=== PATIENT | female | born 1935 | race Caucasian/White ===

== ENCOUNTER → 2019-06-21 | Day surgery (SDC) | payer MEDICARE ==
[2019-06-20 10:30] VITALS: BMI 27.0
[~2019-06-21] MED LIST: BALANCED SALT IRRIG SOLN COMB2 15 ML IRRIG.SOLN IRRIGATION ONE; CHONDROITIN-SOD HYALURONATE 1 EACH SYRINGE (0.75 ML) INTRAOCULA ONE; EPINEPHrine (PF) 0.3 ML in BALANCED SALT IRRIG SOLN COMB2 500 ML IRRIGATION ONE; HYALURONATE SODIUM INTRAOCULAR 1 EACH SYRINGE (12MG/ML) INTRAOCULA ONE; LACTATED RINGERS 1,000 ML IV ONE; LACTATED RINGERS 1,000 ML IV SCH; LIDOCAINE 1% (10MG/ML) FOR IV START INTRADERMA PRN; LIDOCAINE 1% (PF) 10MG/ML VIAL MISCELLANE ONE; MOXIFLOXACIN HCL 0.5% DROPS 3 ML BTL OP ONE; TETRACAINE 0.5% OPHTH (PF) DROPS 4 ML BTL OP ONE; TIMOLOL 0.5% OPHTH DROPS 5 ML BTL OP ONE; TRYPAN BLUE 0.06% SYRINGE 0.5 ML SYRINGE MISCELLANE ONE
[2019-06-21] MEDS: PHENYLEPHRINE 2.5% OPHTH DRP 2ML OP NR ×3 (12:41→12:56)
[2019-06-21] MEDS: CYCLOPENTOLATE 1% OPHTH SOLN 2 ML BTL OP ONE ×3 (12:45→13:01)
[2019-06-21 12:50] VITALS: TEMP 97.4
[2019-06-21 12:55] LABS: Glucose,Whole Blood 103 mg/dL (75-99)
--- NOTE | 2019-06-21 14:38 | P.OP ---
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
[2019-06-21 15:06] VITALS: BP 184/91; PULSE 77; RESP 18
--- NOTE | 2019-06-22 07:25 | OP ---
OPERATIVE REPORT DATE OF SERVICE: 06/21/2019. PROCEDURE: Phacoemulsification of cataract and intraocular lens implant of the left eye. PREOPERATIVE DIAGNOSES: Nuclear sclerosis, cortical sclerosis and pseudoexfoliation. POSTOPERATIVE DIAGNOSES: Nuclear sclerosis, cortical sclerosis and pseudoexfoliation. SURGEON: Dr. Zafar Valentino. ANESTHESIA: Topical. ESTIMATED BLOOD LOSS: Approximately 2 mL. SPECIMEN TAKEN: None. NARRATIVE: After obtaining the appropriate consent, the patient was brought to the operating room, there she was placed on cardiac monitoring prepped and draped in the usual sterile manner. She was approached from her left temporal side and at the 5 o'clock position, an MVR blade was used to create a paracentesis port. Through this opening 1% Xylocaine MPF 50-50 mix with balanced salt solution was injected into the anterior chamber. This was followed by installation of tri garcia blue which was allowed to dwell in the eye for approximately 1 minute. This was irrigated away with balanced salt solution and the anterior chamber was then stabilized with Viscoat. At the 3 o'clock position, 2.5 mm keratome was used to create a self-sealing corneal flap incision. The planned goniotomy procedure was aborted due to the fact that the goniotomy prism was not considered to be adequately sterilized and would take at least one-half to have the device available for the procedure. Therefore, attention to the cataract was immediately addressed. A cystotome was introduced to begin a continuous tear capsulorrhexis which was completed using the Utrata forceps. Hydrodissection and hydrodelineation lens was accomplished with balanced salt solution. Phacoemulsification lens utilizing phaco chop was accomplished in 23.28 seconds at 16% power. Additional Xylocaine MPF was instilled into the anterior chamber. This was followed by removal of the remaining cortex under irrigation and aspiration along with careful polishing of the posterior capsule in the capsule vacuum mode. Additional Viscoat was then used to stabilize the capsular bag and a 13 mm capsular tension ring model 276 U.S. 1 G was inserted into the equator of the capsular bag without difficulty. This was followed by installation of an MX 60 E 22.0 diopter posterior chamber intraocular lens, also into the capsular bag without difficulty. The remaining viscoelastic was then removed with irrigation and aspiration in and around the intra- ocular lens as well as the anterior chamber. The eye was then brought to normal intraocular pressure through the paracentesis port and the incisions were confirmed watertight. She then received 2 drops of 0.5% timolol followed by moxifloxacin and was then lightly patched and shielded in the usual manner. There were no complications from the procedure. She tolerated the procedure well and was returned to outpatient recovery in good condition. YULIANA / LINETTE: [id number] /
== END | disposition home or self-care (01) ==
LOC: OR 12:10
PROVIDERS: ATTEND Ophthalmology
DX: H25.813 Combined forms of age-related cataract, bilateral (principal); H52.13 Myopia, bilateral; H52.4 Presbyopia; H40.1132 Primary open-angle glaucoma, bilateral, moderate stage; H40.1430 Capsular glaucoma with pseudoexfoliation of lens, bilateral, stage unspecified; H34.8310 Tributary (branch) retinal vein occlusion, right eye, with macular edema; M19.90 Unspecified osteoarthritis, unspecified site; J30.2 Other seasonal allergic rhinitis; Z88.0 Allergy status to penicillin; Z88.5 Allergy status to narcotic agent; Z87.891 Personal history of nicotine dependence; Z98.51 Tubal ligation status; Z98.890 Other specified postprocedural states; Z97.3 Presence of spectacles and contact lenses; Z82.3 Family history of stroke; Z83.518 Family history of other specified eye disorder
CPT/HCPCS: 66982; L8610; C1780; J0171; J2001

== ENCOUNTER → 2019-09-19 | Outpatient (CLI) | payer MEDICARE ==
[2019-09-19 15:01] LABS: Basophils % (A) 1 %; Eosinophils # (A) 0.2 k/uL (0-0.7); Eosinophils % (A) 3 %; HCT 35.3 % (34.0-46.0); HGB 11.7 gm/dL (11.4-16.0); Lymphocytes # (A) 1.3 k/uL (1.0-4.8); Lymphocytes % (A) 22 %; MCH 30.9 pg (25.0-35.0); MCHC 33.1 g/dL (31.0-37.0); MCV 93.3 fL (80.0-100.0); Mean Platelet Volume 9.1; Monocytes # (A) 0.3 k/uL (0-1.0); Monocytes % (A) 4 %; Neutrophils # (A) 4.1 k/uL (1.3-7.7); Neutrophils % (A) 68 %; Platelet Count 218 k/uL (150-450); RBC 3.78 m/uL (3.80-5.40); RDW 14.9 % (11.5-15.5)
--- NOTE | 2019-09-19 15:21 | XR ---
EXAMINATION TYPE: XR foot complete RT DATE OF EXAM: 09/19/2019 CLINICAL HISTORY: Nonhealing wound of the right foot TECHNIQUE: Frontal, lateral, and oblique images of the right foot are obtained. COMPARISON: None FINDINGS: Soft tissue ulceration is seen of the medial midfoot over the navicular. There is diffuse o sseous demineralization and very subtle early ulcer suspected of the navicular. Soft tissue swelling is seen superficial to this. Flexion deformities of the distal interphalangeal joints and proximal interphalangeal joints of the s econd through fifth digits limiting evaluation. Opposing surface sclerosis and joint space narrowing with bony proliferative change related to at least moderate arthropathy of the first tarsometatarsal joint joint. Findings are seen to a lesser degree of the first metatarsal phalangeal joint. Bony prol iferative change of the dorsal midfoot is also seen. No acute displaced right foot fracture noted. Sm all plantar enthesophyte/heel spur. IMPRESSION: Findings concerning for early osteomyelitis of the right navicular with overlying subcuta neous ulcer and soft tissue swelling. Correlation with three-phase bone scan recommended.
[2019-09-19 23:40] LABS: African American GFR (CKD) 68.5 (60.0-200.0); Albumin 3.8 g/dL (3.80-4.90); Albumin/Globulin Ratio 1.46 (1.60-3.17); Anion Gap 8.9 mmol/L (4.00-12.00); BUN/Creat Ratio 35.56 Ratio (12.00-20.00); Calcium 9.2 mg/dL (8.7-10.3); Carbon Dioxide 23.1 mmol/L (21.6-31.8); Globulin 2.6 g/dL (1.6-3.3); Non-African American GFR(CKD) 59.1 (60.0-200.0); Potassium 4.4 mmol/L (3.5-5.5); Total Bilirubin 0.2 mg/dL (0.3-1.2); Total Protein 6.4 g/dL (6.2-8.2)
== END | disposition home or self-care (01) ==
LOC: LABWHC1 14:08
PROVIDERS: ATTEND Podiatrist
DX: L97.512 Non-pressure chronic ulcer of other part of right foot with fat layer exposed (principal); M79.89 Other specified soft tissue disorders
CPT/HCPCS: 36415; 80053; 84134; 85025

== ENCOUNTER 2019-09-22 12:57 | Inpatient (IN) | payer MEDICARE ==
--- NOTE | 2019-09-22 13:49 | ED ---
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 She's had the area of erythema over the dorsal aspect of the lateral foot with increased pain especially on weightbearing. No fevers or chills she states she has some sweats but she attributes that to the recent hot weather. She does have an erythematous area which she states and gotten somewhat bigger. No n ausea no vomiting no other modifying factors at this time. MD Complaint: wound re-check - Related Data Home Medications Medication Instructions Recorded Confirmed Ibuprofen [Advil] 400 mg PO Q6HR PRN 06/20/19 09/22/19 Brimonidine Tartrate [Alphagan P 1 drops BOTH EYES TID 09/22/19 09/22/19 0.2% Ophth Soln] Allergies Allergy/AdvReac Type Severity Reaction Status Date / Time vitamin E (d-alpha Allergy Rash/Hives Verified 09/22/19 13:50 tocopherol) [vitamin E] Antihistamines - Alkylamine AdvReac Rapid Verified 09/22/19 13:50 Heart Rate morphine AdvReac Hallucinati Verified 09/22/19 13:50 ons antibiotics AdvReac Nausea & Uncoded 09/22/19 13:08 Vomiting Review of Systems ROS Statement: Those systems with pertinent positive or pertinent negative responses have been documented in the HPI. ROS Other: All systems not noted in ROS Statement are negative. Past Medical History Past Medical History: Eye Disorder, Musculoskeletal Disorder, Skin Disorder Additional Past Medical History / Comment(s): sciatica down right leg @times, sinus problems, wound on right foot arch History of Any Multi-Drug Resistant Organisms: None Reported Past Surgical History: Tubal Ligation Additional Past Surgical History / Comment(s): surg. for ectopic , left ear surg. x2 Past Anesthesia/Blood Transfusion Reactions: Postoperative Nausea & Vomiting (PONV) Additional Past Anesthesia/Blood Transfusion Reaction / Comment(s): very slow to wake from anesthesia Past Psychological History: No Psychological Hx Reported Smoking Status: Current every day smoker Past Alcohol Use History: None Reported Past Drug Use History: None Reported - Past Family History Mother Family Medical History: Cancer General Exam - General Exam Comments Initial Comments: This is a well-developed asthenic appearing female who is awake alert oriented 3 Limitations: no limitations General appearance: alert, in no apparent distress Head exam: Present: atraumatic, normocephalic, normal inspection Eye exam: Present: normal appearance, PERRL, EOMI. Absent: scleral icterus, conjunctival injection, periorbital swelling ENT exam: Present: normal exam, mucous membranes moist Neck exam: Present: normal inspection. Absent: tenderness, meningismus, lymphad enopathy Respiratory exam: Present: normal lung sounds bilaterally. Absent: respiratory distress, wheezes, rales, rhonchi, stridor Cardiovascular Exam: Present: regular rate, normal rhythm, normal heart sounds. Absent: systolic murmur, diastolic murmur, rubs, gallop, clicks GI/Abdominal exam: Present: soft, normal bowel sounds. Absent: distended, tenderness, guarding, rebound, rigid Extremities exam: Present: full ROM, tenderness, normal capillary refill, other (Chronic ulcer seen over the medial plantar aspect of the foot over the dorsal foot lateral aspect above the fourth and fifth metatarsals area of wound with surrounding erythema. Increased localized temperature. Some tenderness p alpation. Definite drainage seen. No lymphangitis. Proximally no tender lymphadenopathy to the anal area.). Absent: pedal edema, joint swelling, calf tenderness Back exam: Present: normal inspection Neurological exam: Present: alert, oriented X3, CN II-XII intact Psychiatric exam: Present: normal affect, normal mood Skin exam: Present: warm, dry, intact, normal color. Absent: rash Course Vital Signs 09/22/19 12:58 Temperature 97.8 F Pulse Rate 69 Respiratory 18 Rate Blood Pressure 194/77 O2 Sat by Pulse 98 Oximetry Medical Decision Making - Medical Decision Making I did discuss findings with patient family as well as with Dr. Ghotra. Patient be admitted with consultation by Dr. Reynaga - Lab Data Result diagrams: 09/22/19 14:09 09/22/19 14:09 Lab Results 09/22/19 09/22/19 Range/Units 14:09 14:09 WBC 7.9 (3.8-10.6) k/uL RBC 3.88 (3.80-5.40) m/uL Hgb 11.9 (11.4-16.0) gm/dL Hct 35.9 (34.0-46.0) % MCV 92.5 (80.0-100.0) fL MCH 30.6 (25.0-35.0) pg MCHC 33.1 (31.0-37.0) g/dL RDW 14.5 (11.5-15.5) % Plt Count 246 (150-450) k/uL Neutrophils % 62 % Lymphocytes % 28 % Monocytes % 4 % Eosinophils % 4 % Basophils % 1 % Neutrophils # 4.9 (1.3-7.7) k/uL Lymphocytes # 2.2 (1.0-4.8) k/uL Monocytes # 0.3 (0-1.0) k/uL Eosinophils # 0.3 (0-0.7) k/uL Basophils # 0.0 (0-0.2) k/uL Sodium 137 (137-145) mmol/L Potassium 4.5 (3.5-5.1) mmol/L Chloride 106 (98-107) mmol/L Carbon Dioxide 24 (22-30) mmol/L Anion Gap 7 mmol/L BUN 31 H (7-17) mg/dL Creatinine 0.72 (0.52-1.04) mg/dL Est GFR (CKD-EPI)AfAm >90 (>60 ml/min/1.73 sqM) Est GFR (CKD-EPI)NonAf 78 (>60 ml/min/1.73 sqM) Glucose 93 (74-99) mg/dL Calcium 9.1 (8.4-10.2) mg/dL Magnesium 2.0 (1.6-2.3) mg/dL Total Bilirubin 0.2 (0.2-1.3) mg/dL AST 45 H (14-36) U/L ALT 32 (4-34) U/L Alkaline Phosphatase 64 (38-126) U/L Creatine Kinase 450 H (30-135) U/L C-Reactive Protein 11.9 H (<10.0) mg/L Total Protein 6.9 (6.3-8.2) g/dL Albumin 3.7 (3.5-5.0) g/dL Disposition Clinical Impression: Osteomyelitis of foot, right, acute, Cellulitis of right foot, Dehydration Disposition: ADMITTED IP TO THIS HOSP Condition: Stable Referrals: None,Stated [Primary Care Provider] - 1-2 days
[2019-09-22] MEDS ORDERED: cefTRIAXone IN SWFI 1,000 MG/10 ML SYRINGE IVP STA (13:55)
[2019-09-22 14:20] LABS: Basophils % (A) 1 %; Eosinophils # (A) 0.3 k/uL (0-0.7); Eosinophils % (A) 4 %; HCT 35.9 % (34.0-46.0); HGB 11.9 gm/dL (11.4-16.0); Lymphocytes # (A) 2.2 k/uL (1.0-4.8); Lymphocytes % (A) 28 %; MCH 30.6 pg (25.0-35.0); MCHC 33.1 g/dL (31.0-37.0); MCV 92.5 fL (80.0-100.0); Mean Platelet Volume 8.6; Monocytes # (A) 0.3 k/uL (0-1.0); Monocytes % (A) 4 %; Neutrophils # (A) 4.9 k/uL (1.3-7.7); Neutrophils % (A) 62 %; Platelet Count 246 k/uL (150-450); RBC 3.88 m/uL (3.80-5.40); RDW 14.5 % (11.5-15.5); WBC 7.9 k/uL (3.8-10.6)
[2019-09-22 14:33] LABS: ALT 32 U/L (4-34); AST 45 U/L (14-36); African American GFR (CKD) >90 (>60 ml/min/1.73 sqM); Albumin 3.7 g/dL (3.5-5.0); Alkaline Phosphatase 64 U/L (38-126); Anion Gap 7 mmol/L; Blood Urea Nitrogen 31 mg/dL (7-17); C Reactive Protein 11.9 mg/L (<10.0); Calcium 9.1 mg/dL (8.4-10.2); Carbon Dioxide 24 mmol/L (22-30); Chloride 106 mmol/L (98-107); Creatine Kinase 450 U/L (30-135); Glucose 93 mg/dL (74-99); Non-African American GFR(CKD) 78 (>60 ml/min/1.73 sqM); Potassium 4.5 mmol/L (3.5-5.1); Sodium 137 mmol/L (137-145); Total Bilirubin 0.2 mg/dL (0.2-1.3); Total Protein 6.9 g/dL (6.3-8.2)
[2019-09-22] MEDS ORDERED: NALOXONE 0.4 MG/ML 1 ML VIAL IV PRN (15:23)
[2019-09-22] MEDS ORDERED: SODIUM CHLORIDE 0.9% 1,000 ML IV SCH (15:30)
[2019-09-22] MEDS ORDERED: hydrALAZINE HCL 20 MG/ML 1 ML VIAL IVP STA (16:30)
[2019-09-22] MEDS ORDERED: HYDROcodone/APAP 5-325MG 1 EACH TAB PO PRN (16:46)
--- NOTE | 2019-09-22 16:53 | P.HPIM ---
History of Present Illness H&P Date: 09/22/19 Chief Complaint: Right foot pain 83-year-old female with PMH of glaucoma presents to the ED after being sent in by her saw tailer. Patient reports chronic draining wound from the sole of her right foot that has been ongoing for the past 2 years after a callus broke open. She has been seeing a physician in [place] for treatment. She has never received long-term antibiotics. She underwent debridement last week with Dr. Reynaga and has noticed redness in her foot that has been progressively getting worse. She was able to follow with her saw tailer today who sent her in to be evaluated for chronic osteomyelitis. Foot x-ray shows findings concerning for early osteomyelitis. In the ED, her blood pressure was elevated to 194/77. CBC was unremarkable. CMP showed BUN of 31 and AST of 45. CPK was 450. CRP was elevated 11.9. Patient is admitted for right foot wound, probable osteomyelitis, podiatry and ID consultation. Review of Systems Pertinent positives and negatives as discussed in HPI, a complete review of syst ems was performed and all other systems are negative. Past Medical History Past Medical History: Eye Disorder, Musculoskeletal Disorder, Skin Disorder Additional Past Medical History / Comment(s): sciatica down right leg @times, sinus problems, wound on right foot arch History of Any Multi-Drug Resistant Organisms: None Reported Past Surgical History: Tubal Ligation Additional Past Surgical History / Comment(s): surg. for ectopic , left ear surg. x2 Past Anesthesia/Blood Transfusion Reactions: Postoperative Nausea & Vomiting (PONV) Additional Past Anesthesia/Blood Transfusion Reaction / Comment(s): very slow to wake from anesthesia Past Psychological History: No Psychological Hx Reported Smoking Status: Current every day smoker Past Alcohol Use History: None Reported Past Drug Use History: None Reported - Past Family History Mother Family Medical History: Cancer Medications and Allergies Home Medications Medication Instructions Recorded Confirmed Type Ibuprofen [Advil] 400 mg PO Q6HR PRN 06/20/19 09/22/19 History Brimonidine Tartrate [Alphagan P 1 drops BOTH EYES TID 09/22/19 09/22/19 History 0.2% Ophth Soln] Allergies Allergy/AdvReac Type Severity Reaction Status Date / Time vitamin E (d-alpha Allergy Rash/Hives Verified 09/22/19 13:50 tocopherol) [vitamin E] Antihistamines - Alkylamine AdvReac Rapid Verified 09/22/19 13:50 Heart Rate morphine AdvReac Hallucinati Verified 09/22/19 13:50 ons antibiotics AdvReac Nausea & Uncoded 09/22/19 13:08 Vomiting Physical Exam Vitals: Vital Signs Temp Pulse Resp BP Pulse Ox 09/22/19 16:21 98.4 F 74 16 197/100 97 09/22/19 12:58 97.8 F 69 18 194/77 98 Intake and Output 09/22/19 09/22/19 09/22/19 06:59 14:59 22:59 Other: Weight 60.781 kg General: [non toxic], [no distress], [appears at stated age] Derm: [warm], [dry] Head: [atraumatic], [normocephalic], [symmetric] Eyes: [EOMI], [no lid lag], [anicteric sclera] Mouth: [no lip lesion], [mucus membranes moist] Cardiovascular: [S1S2 reg], [no murmur], [positive DP pulse bilateral], Lungs: [CTA bilateral], [no rhonchi, no rales] , [no accessory muscle use] Abdominal: [soft], [ nontender to palpation], [no guarding], [no appreciable organomegaly] Ext: [no gross muscle atrophy], [no edema], [no contractures], [right foot 1" x 1" wound with serosanguineous drainage over the plantar surface with erythema extending to the dorsal aspect of her right foot] Neuro: [ CN II-XI grossly intact], [no focal neuro deficits] Psych: [Alert], [oriented], [appropriate affect] Results CBC & Chem 7: 09/22/19 14:09 09/22/19 14:09 Labs: Abnormal Lab Results - Last 24 Hours (Table) 09/22/19 Range/Units 14:09 BUN 31 H (7-17) mg/dL AST 45 H (14-36) U/L Creatine Kinase 450 H (30-135) U/L C-Reactive Protein 11.9 H (<10.0) mg/L Assessment and Plan Assessment: Hypertensive urgency Osteomyelitis of the right foot Prerenal azotemia with Elevated CPK Elevated AST Glaucoma Blood pressure 197/100. Patient is no history of hypertension. She complains of no pain. We will give her a 1 time dose of Hydralazine 10 mg IV. I will start her on Lisinopril and HCTZ. Telemetry monitoring will be ordered. Her vitals be monitored and medications adjusted if necessary. As seen on foot x-ray. CRP elevated. We'll consult podiatry for further recommendations. Will likely need a bone scan. Consult ID for further recommendations on antibiotics. Continue Rocephin in the meantime. Follow wound culture. Her BUN is 31. Along with her elevated CPK of 450. This is likely related to dehydration. She will be started on normal saline at 80 mL per hour. We will repeat CMP tomorrow morning. Patient has elevated AST of 45. This is of unknown significance. We will repeat CMP tomorrow morning. I will continue her home medication of brimonidine. DVT prophylaxis: [Heparin subcutaneous] Discussed with: [Patient and daughter] Anticipated discharge: [2-3 days] Anticipated discharge place: [Home] A total of [45] minutes was spent on the care of this complex patient more than 50% of the time was spent in counseling and care coordination. Patient names her daughter Daphne decision maker if she can't make decisions for herself. Patient would like to be no code but is open to intubation if necessary.
[2019-09-22] MEDS: LISINOPRIL-HCTZ 10-12.5 MG 1 EACH TAB PO SCH (17:10)
[2019-09-22] MEDS ORDERED: guaiFENesin 600 MG TABLET.ER PO PRN (18:09)
[2019-09-22] MEDS: HEPARIN SODIUM,PORCINE 5,000 UNIT/ML 1 ML VIAL SQ SCH (22:12)
[2019-09-22] MEDS: BRIMONIDINE TARTRATE 0.2% DROPS 5 ML BTL BOTH EYES SCH ×2 (22:12→22:16)
[2019-09-22] MEDS: IBUPROFEN 400 MG TAB PO PRN (22:13)
[2019-09-22] MEDS ORDERED: VANCOMYCIN IV PER PHARMACY 1 EACH MISC MISCELLANE PRN (22:44)
[2019-09-22] MEDS: VANCOMYCIN 1,250 MG in SODIUM CHLORIDE 0.9% 250 ML IVPB SCH (23:25)
--- NOTE | 2019-09-23 00:30 | P.CONS ---
History of Present Illness - Reason for Consult Consult date: 09/22/19 right foot osteomyelitis Requesting physician: Marine Ghotra - Chief Complaint right foot non healing wound and abnormal x ray - History of Present Illness Patient is 83-year-old female who apparently did have a chronic nonhealing wound to the plantar aspect of the right foot for more than a year now patient previously has been taking care off at the wound care center in [place] however recently the patient has been getting her treatment at the [facility] wound care center apparently the patient recently did have an x-ray of the right foot with concern for possible osteomyelitis she was seen in the wound care center today where she was noticed to have more swelling and redness on the dorsal aspect of the right foot with concern for cellulitis and osteomyelitis the patient has been referred to the ER for further management on arrival to the ER the patient has been afebrile patient did have a normal white count CRP was mildly low at 11.9 patient was started on Rocephin has been admitted to hospital infectious disease was consulted for further management of antibiotic therapy, the patient denies having any fever or any chills denies having any chest pain shortness of breath or cough no abdominal pain patient did have a swelling and redness on the dorsal aspect of the right foot has been going on for the last few days denies having history of any trauma mild dull aching pain to the right foot intensity about 3-4 out of 10 and no radiation and denies having significant purulent drainage from the right foot wound. Review of Systems Positive point has been mentioned in HPI rest of the systems are negative Past Medical History Past Medical History: Eye Disorder, Musculoskeletal Disorder, Skin Disorder Additional Past Medical History / Comment(s): sciatica down right leg @times, sinus problems, wound on right foot arch History of Any Multi-Drug Resistant Organisms: None Reported Past Surgical History: Tubal Ligation Additional Past Surgical History / Comment(s): surg. for ectopic , left ear surg. x2 Past Anesthesia/Blood Transfusion Reactions: Postoperative Nausea & Vomiting (PONV) Additional Past Anesthesia/Blood Transfusion Reaction / Comm: very slow to wake from anesthesia Past Psychological History: No Psychological Hx Reported Smoking Status: Current every day smoker Past Alcohol Use History: None Reported Past Drug Use History: None Reported - Past Family History Mother Family Medical History: Cancer Medications and Allergies Home Medications Medication Instructions Recorded Confirmed Type Ibuprofen [Advil] 400 mg PO Q6HR PRN 06/20/19 09/22/19 History Brimonidine Tartrate [Alphagan P 1 drops BOTH EYES TID 09/22/19 09/22/19 History 0.2% Ophth Soln] Allergies Allergy/AdvReac Type Severity Reaction Status Date / Time vitamin E (d-alpha Allergy Rash/Hives Verified 09/22/19 13:50 tocopherol) [vitamin E] Antihistamines - Alkylamine AdvReac Rapid Verified 09/22/19 13:50 Heart Rate morphine AdvReac Hallucinati Verified 09/22/19 13:50 ons antibiotics AdvReac Nausea & Uncoded 09/22/19 13:08 Vomiting Physical Exam Vitals: Vital Signs Temp Pulse Pulse Resp BP BP Pulse Ox 09/22/19 16:21 98.4 F 74 16 197/100 97 09/22/19 16:16 97.6 F 88 18 163/96 97 09/22/19 12:58 97.8 F 69 18 194/77 98 Intake and Output 09/22/19 09/22/19 09/22/19 06:59 14:59 22:59 Other: Weight 60.781 kg 60.781 kg GENERAL DESCRIPTION: Elderly female lying in bed, no distress. No tachypnea or accessory muscle of respiration use. HEENT: Shows Pallor , no scleral icterus. Oral mucous membrane is dry. NECK: Trachea central, no thyromegaly. LUNGS: Unlabored breathing. Clear to auscultation anteriorly. No wheeze or crackle. HEART: S1, S2, regular rate and rhythm. ABDOMEN: Soft, no tenderness , guarding or rigidity EXTREMITIES: Right foot plantar aspect did have wound which is not probing down to the bone patient did have a swelling and erythema on the dorsum aspect of the right foot and no purulent drainage. SKIN: No rash, no masses palpable. NEUROLOGICAL: The patient is awake, alert, oriented x3, mood and affect normal. Results CBC & Chem 7: 09/22/19 14:09 09/22/19 14:09 Labs: Abnormal Lab Results - Last 24 Hours (Table) 09/22/19 Range/Units 14:09 BUN 31 H (7-17) mg/dL AST 45 H (14-36) U/L Creatine Kinase 450 H (30-135) U/L C-Reactive Protein 11.9 H (<10.0) mg/L Assessment and Plan Assessment: -patient with right diabetic foot infection in this patient who did have a chronic nonhealing wound on the plantar aspect of the right foot now with evidence of secondary cellulitis on the dorsum of the right foot and abnormal x- ray suspicious for osteomyelitis we will need to cover for both gram-positive skin marcy as well as gram-negative pathogen with a likely source of the cellulitis and possible osteomyelitis (1) Cellulitis of right foot Current Visit: Yes Status: Acute Code(s): L03.115 - CELLULITIS OF RIGHT LOWER LIMB SNOMED Code(s): 333834242 (2) Osteomyelitis of foot, right, acute Current Visit: Yes Status: Acute Code(s): M86.171 - OTHER ACUTE OSTEOMYELITIS, RIGHT ANKLE AND FOOT SNOMED Code(s): 7258806513354012 Plan: 1-wound culture has been obtained from both aerobic and anaerobic to guide further antibiotic therapy 2-we will obtain a three-phase bone scan 3-vancomycin pharmacy to dose her with a target trough of 15 while watching her kidney function and Vanco trough closely. And Rocephin 2 g daily 4-local wound care with Aquacel packing of the wound We will follow on clinical condition and cultures to further adjust medication if needed Thank you for this consultation we will follow the patient along with you Time with Patient: Greater than 30
[2019-09-23 06:31] LABS: Basophils % (A) 1 %; Eosinophils # (A) 0.3 k/uL (0-0.7); Eosinophils % (A) 5 %; HCT 33.6 % (34.0-46.0); HGB 11.2 gm/dL (11.4-16.0); Lymphocytes # (A) 2.1 k/uL (1.0-4.8); Lymphocytes % (A) 35 %; MCH 30.8 pg (25.0-35.0); MCHC 33.2 g/dL (31.0-37.0); MCV 92.7 fL (80.0-100.0); Mean Platelet Volume 8.9; Monocytes # (A) 0.3 k/uL (0-1.0); Monocytes % (A) 4 %; Neutrophils # (A) 3.3 k/uL (1.3-7.7); Neutrophils % (A) 54 %; Platelet Count 239 k/uL (150-450); RBC 3.62 m/uL (3.80-5.40); RDW 14.4 % (11.5-15.5); WBC 6.1 k/uL (3.8-10.6)
[2019-09-23 06:51] LABS: Albumin 3.2 g/dL (3.5-5.0); C Reactive Protein 10.4 mg/L (<10.0); Calcium 8.7 mg/dL (8.4-10.2); Potassium 3.8 mmol/L (3.5-5.1); Total Bilirubin 0.2 mg/dL (0.2-1.3); Total Protein 6.4 g/dL (6.3-8.2)
[2019-09-23 08:45] LABS: Erythrocyte Sedimentation Rate 55 mm/hr (0-20)
[2019-09-23] MEDS: PANTOPRAZOLE 40 MG/10 ML VIAL IV SCH ×2 (09:04→09:07)
[2019-09-23] MEDS: HEPARIN SODIUM,PORCINE 5,000 UNIT/ML 1 ML VIAL SQ SCH ×2 (09:05→20:12)
[2019-09-23] MEDS: BRIMONIDINE TARTRATE 0.2% DROPS 5 ML BTL BOTH EYES SCH ×3 (09:06→20:12)
--- NOTE | 2019-09-23 12:13 | NM ---
EXAMINATION TYPE: NM bone 3 phase DATE OF EXAM: 09/23/2019 COMPARISON: NONE HISTORY: Plantar wound on the right foot Triple phase bone scintigraphy was performed following the injection of 23.9 mCi Tc 99m MDP. Immedia te images and 3 hours post injection images acquired. FINDINGS: Flow images show slight increased flow to the right foot. Pool images show forefoot activity in both feet, greater on the right than the left. Delayed static images show increased activity on the right at the tarsometatarsal junctions of the first through fourth metatarsals and also the tibiotalar join t on the right. IMPRESSION: FINDINGS MORE CONSISTENT WITH DEGENERATIVE CHANGES AND OSTEOMYELITIS.
--- NOTE | 2019-09-23 12:46 | PN ---
PROGRESS NOTE DATE OF SERVICE: 09/23/2019 REASON FOR FOLLOWUP: Right diabetic foot wound with secondary cellulitis and a question of osteomyelitis. INTERVAL HISTORY: The patient is currently afebrile. The patient is breathing comfortably. Denies any chest pain, cough. No nausea, vomiting, abdominal pain or discomfort. The right foot has improved. PHYSICAL EXAMINATION: Blood pressure 151/67, pulse of 71, temperature 97.4. She is 96% on room air. General description is an elderly female up in the chair in no distress. Respiratory system: Unlabored breathing. Clear to auscultation anteriorly. HEART S1, S2. Regular rate and rhythm. ABDOMEN: Soft, no tenderness. Right foot dorsum area did have a small blister with pustule. Redness slightly decreased. Minimal drainage on the plantar wound on the right foot. LABS: Hemoglobin 11.2, white count 6.1, BUN of 26, creatinine 0.74. DIAGNOSTIC IMPRESSION AND PLAN: Patient with right diabetic foot wound with underlying cellulitis. Waiting for the bone scan to be completed and culture to finalize. Keep the patient on current antibiotic form of Rocephin and vancomycin. RN has been advised if the pustule on the dorsum opens up take the culture and continue supportive care. MMODL / IJN: [id number] /
[2019-09-23] MEDS: VANCOMYCIN 1,250 MG in SODIUM CHLORIDE 0.9% 250 ML IVPB SCH (15:37)
--- NOTE | 2019-09-23 15:51 | P.PN ---
Subjective Progress Note Date: 09/23/19 Principal diagnosis: Right foot wound Patient was seen and examined. No acute events overnight. Patient reports continued drainage of her right foot ulcer. She reports improvement in the redness of her right foot. Pain is currently well under control. She denies any chest pain, shortness breath or palpitations. No nausea or vomiting. No fever or chills. Objective - Vital Signs Vital signs: Vital Signs Temp 97.5 F L 09/23/19 13:06 Pulse 74 09/23/19 15:44 Resp 16 09/23/19 13:06 BP 150/71 09/23/19 15:44 Pulse Ox 98 09/23/19 13:06 Intake & Output 09/22/19 09/23/19 09/23/19 18:59 06:59 18:59 Intake Total 480 750 Balance 480 750 Weight 60.781 kg Intake: Intake, IV Titration 480 Amount Sodium Chloride 0.9% 1, 480 000 ml @ 80 mls/hr IV . [id number] LUCIANA Rx#:[id number] Oral 750 Other: # Voids 1 2 - Exam General: [non toxic], [no distress], [appears at stated age] Derm: [warm], [dry] Head: [atraumatic], [normocephalic], [symmetric] Eyes: [EOMI], [no lid lag], [anicteric sclera] Mouth: [no lip lesion], [mucus membranes moist] Cardiovascular: [S1S2 reg], [no murmur], [positive DP pulse bilateral], Lungs: [CTA bilateral], [no rhonchi, no rales] , [no accessory muscle use] Abdominal: [soft], [ nontender to palpation], [no guarding], [no appreciable or ganomegaly] Ext: [no gross muscle atrophy], [no edema], [no contractures], [right foot 1" x 1" wound with serosanguineous drainage over the plantar surface with erythema extending to the dorsal aspect of her right foot, improved] Neuro: [no focal neuro deficits] Psych: [Alert], [oriented], [appropriate affect] - Labs CBC & Chem 7: 09/23/19 06:11 09/23/19 06:11 Labs: Abnormal Lab Results - Last 24 Hours (Table) 09/23/19 09/23/19 Range/Units 06:11 06:11 RBC 3.62 L (3.80-5.40) m/uL Hgb 11.2 L (11.4-16.0) gm/dL Hct 33.6 L (34.0-46.0) % ESR 55 H (0-20) mm/hr Sodium 134 L (137-145) mmol/L BUN 26 H (7-17) mg/dL AST 41 H (14-36) U/L C-Reactive Protein 10.4 H (<10.0) mg/L Albumin 3.2 L (3.5-5.0) g/dL Microbiology - Last 24 Hours (Table) 09/22/19 16:55 Gram Stain - Preliminary Foot - Right Wound Culture - Preliminary 09/22/19 16:55 Anaerobic Culture - Preliminary Foot - Right Assessment and Plan Assessment: Hypertensive urgency, now improved Osteomyelitis of the right foot Prerenal azotemia with Elevated CPK Elevated AST Glaucoma Blood pressure is currently 150/71. Patient is no history of hypertension. She complains of no pain. I will continue her on Lisinopril and HCTZ. We will increase dosing for tomorrow. Telemetry monitoring will be ordered. Her vitals be monitored and medications adjusted if necessary. As seen on foot x-ray. CRP elevated. We'll consult podiatry for further recommendations. Bone scan ordered. Consult ID for further recommendations on antibiotics. Continue Rocephin in the meantime. Vancomycin added by anxiety. Follow wound culture. Her BUN is 31-26. Along with her elevated CPK of 450. This is likely related to dehydration. She will be continued on normal saline at 80 mL per hour. We will repeat CMP tomorrow morning. Patient has elevated AST of 45-41. This is of unknown significance. We will repeat CMP tomorrow morning. I will continue her home medication of brimonidine. [Patient omitted for osteomyelitis of the right foot. On antibiotics. Cultures are pending. Bone scan pending. Podiatry consult pending. She is pending clinical improvement. Will likely need long-term IV antibiotics. Likely DC in 2-3 days.]
[2019-09-23] MEDS: IBUPROFEN 400 MG TAB PO PRN (20:43)
[2019-09-24] MEDS: HEPARIN SODIUM,PORCINE 5,000 UNIT/ML 1 ML VIAL SQ SCH ×2 (08:44→21:58)
[2019-09-24] MEDS: PANTOPRAZOLE 40 MG TABLET PO SCH (08:45)
[2019-09-24] MEDS: VANCOMYCIN 1,250 MG in SODIUM CHLORIDE 0.9% 250 ML IVPB SCH (08:46)
[2019-09-24] MEDS: BRIMONIDINE TARTRATE 0.2% DROPS 5 ML BTL BOTH EYES SCH ×3 (08:46→21:58)
[2019-09-24] MEDS: LISINOPRIL-HCTZ 10-12.5 MG 1 EACH TAB PO SCH (08:55)
[2019-09-24] MEDS: IBUPROFEN 400 MG TAB PO PRN ×2 (08:58→22:06)
--- NOTE | 2019-09-24 17:13 | P.PN ---
Subjective Progress Note Date: 09/24/19 Principal diagnosis: Right foot wound Patient was seen and examined. No acute events overnight. Patient reports continued drainage of her right foot ulcer. She reports improvement in the redness of her right foot. Pain is currently well under control. She denies any chest pain, shortness breath or palpitations. No nausea or vomiting. No fever or chills. Objective - Vital Signs Vital signs: Vital Signs Temp 97.9 F 09/24/19 11:31 Pulse 68 09/24/19 11:31 Resp 16 09/24/19 11:31 BP 168/75 09/24/19 11:31 Pulse Ox 98 09/24/19 11:31 Intake & Output 09/23/19 09/24/19 09/24/19 18:59 06:59 18:59 Intake Total 750 700 Balance 750 700 Intake: Oral 750 700 Other: Voiding Method Toilet Toilet # Voids 2 1 2 # Bowel Movements 1 - Exam General: [non toxic], [no distress], [appears at stated age] Derm: [warm], [dry] Head: [atraumatic], [normocephalic], [symmetric] Eyes: [EOMI], [no lid lag], [anicteric sclera] Mouth: [no lip lesion], [mucus membranes moist] Cardiovascular: [S1S2 reg], [no murmur], [positive DP pulse bilateral], Lungs: [CTA bilateral], [no rhonchi, no rales] , [no accessory muscle use] Abdominal: [soft], [ nontender to palpation], [no guarding], [no appreciable organomegaly] Ext: [no gross muscle atrophy], [no edema], [no contractures], [right foot 1" x 1" wound with serosanguineous drainage over the plantar surface with erythema extending to the dorsal aspect of her right foot, improved] Neuro: [no focal neuro deficits] Psych: [Alert], [oriented], [appropriate affect] - Labs CBC & Chem 7: 09/23/19 06:11 09/24/19 05:57 Labs: Microbiology - Last 24 Hours (Table) 09/22/19 14:09 Blood Culture - Preliminary Blood No Growth after 48 hours Assessment and Plan Assessment: Hypertensive urgency, now improved Osteomyelitis of the right foot Prerenal azotemia with Elevated CPK Elevated AST Glaucoma Blood pressure is currently 150/71. Patient is no history of hypertension. She complains of no pain. Patient refusing antihypertensive medication. Telemetry monitoring will be ordered. Her vitals be monitored and medications adjusted if necessary. As seen on foot x-ray. CRP elevated. We'll consult podiatry for further recommendations. Bone scan shows osteomyelitis. Consult ID for further recommendations on antibiotics. Continue Rocephin in the meantime. Vancomycin added by infectious disease. Follow wound culture. Her BUN is 31-26. Along with her elevated CPK of 450. This is likely related to dehydration. DC IVF and encourage hydration by mouth. Patient has elevated AST of 45-41. This is of unknown significance. We will repeat CMP tomorrow morning. I will continue her home medication of brimonidine. [Patient omitted for osteomyelitis of the right foot. On antibiotics. Cultures are pending. Podiatry consult pending. She is pending clinical improvement. Will likely need long-term IV antibiotics. Likely DC in 1-2 days.]
[2019-09-25] MEDS: VANCOMYCIN 1,250 MG in SODIUM CHLORIDE 0.9% 250 ML IVPB SCH (00:04)
--- NOTE | 2019-09-25 02:27 | PN ---
PROGRESS NOTE DATE OF SERVICE: 09/24/2019 REASON FOR FOLLOWUP: Right diabetic foot wound with question of osteomyelitis. INTERVAL HISTORY: The patient is currently afebrile. The patient is breathing comfortably. The patient has been feeling better. Overall pain and discomfort to the right foot has improved. No nausea, no vomiting. No abdominal pain. No diarrhea. He wants to go home. PHYSICAL EXAMINATION: Blood pressure 168/75 with the pulse of 68, temperature is 97.9. She is 98% on room air. General description is an elderly female lying in bed in no distress. RESPIRATORY SYSTEM: Unlabored breathing, clear to auscultation anteriorly. HEART: S1, S2. Regular rate and rhythm. ABDOMEN: Soft. No tenderness. Right foot dorsum area did have small wound with secondary cellulitis. Culture has been obtained. DIAGNOSTIC IMPRESSION AND PLAN: Patient with right diabetic foot wound with concern for underlying cellulitis with some cellulitis prominent on the dorsum of the right foot in this patient who did have a small area of pustule which has opened up. Culture has been obtained. We will keep the patient on vancomycin and Rocephin while waiting for the culture to finalize. The bone scan will be reviewed with radiologist to see any of the inflammation corresponds to the wound and if the patient has need for outpatient IV antibiotic therapy. MMODL / IJN: [id number] / RITO
[2019-09-25] MEDS: LISINOPRIL-HCTZ 10-12.5 MG 1 EACH TAB PO SCH (06:01)
[2019-09-25 06:28] VITALS: TEMP 97.8
--- NOTE | 2019-09-25 07:51 | P.GSHP ---
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 Wednesday there is cellulitis and edema of the right foot with positive radiographic findings of suspicious osteomyelitis of the right foot. Patient was sent to the emergency room for evaluation and admission for treatment of the cellulitis. Patient has been put on vancomycin and Rocephin and voices no complaints. The wound is being treated with Aquacel this time. Past Medical History Past Medical History: Eye Disorder, Musculoskeletal Disorder, Skin Disorder Additional Past Medical History / Comment(s): sciatica down right leg @times, sinus problems, wound on right foot arch History of Any Multi-Drug Resistant Organisms: None Reported Past Surgical History: Tubal Ligation Additional Past Surgical History / Comment(s): surg. for ectopic , left ear surg. x2 Past Anesthesia/Blood Transfusion Reactions: Postoperative Nausea & Vomiting (P ONV) Additional Past Anesthesia/Blood Transfusion Reaction / Comment(s): very slow to wake from anesthesia Past Psychological History: No Psychological Hx Reported Smoking Status: Current every day smoker Past Alcohol Use History: None Reported Past Drug Use History: None Reported - Past Family History Mother Family Medical History: Cancer Medications and Allergies Home Medications Medication Instructions Recorded Confirmed Type Ibuprofen [Advil] 400 mg PO Q6HR PRN 06/20/19 09/22/19 History Brimonidine Tartrate [Alphagan P 1 drops BOTH EYES TID 09/22/19 09/22/19 History 0.2% Ophth Soln] Allergies Allergy/AdvReac Type Severity Reaction Status Date / Time vitamin E (d-alpha Allergy Rash/Hives Verified 09/22/19 13:50 tocopherol) [vitamin E] Antihistamines - Alkylamine AdvReac Rapid Verified 09/22/19 13:50 Heart Rate morphine AdvReac Hallucinati Verified 09/22/19 13:50 ons antibiotics AdvReac Nausea & Uncoded 09/22/19 13:08 Vomiting Surgical - Exam Vital Signs Temp Pulse Resp BP Pulse Ox 97.8 F 69 18 194/77 98 09/22/19 12:58 06/12/20 12:58 09/22/19 12:58 09/22/19 12:58 09/22/19 12:58 - Cardiovascular Pedal pulses are diminished with no digital hair 10 bilateral - Integumentary Full-thickness ulceration on the plantar aspect of the right foot plantar to the first met cuneiform joint. Patient has minimal necrotic tissue there is erythema and resolving on the dorsum of the right foot in comparison to Fridays observation - Neurologic Patient has loss of epicritic and pallesthetic sensations to the right lower extremity. - Musculoskeletal Patient has a gastrocnemius equinus bilateral. Patient has a collapsed medial arch on the right foot secondary posterior tibial tendon dysfunction. Results - Labs 09/23/19 06:11 09/24/19 05:57 Microbiology - Last 24 Hours (Table) 09/24/19 15:00 Gram Stain - Preliminary Foot - Right Wound Culture - Preliminary 09/24/19 15:00 Anaerobic Culture - Preliminary Foot - Right 09/22/19 16:55 Gram Stain - Final Foot - Right Wound Culture - Preliminary 09/22/19 14:09 Blood Culture - Preliminary Blood No Growth after 48 hours Assessment and Plan Assessment: Cellulitis right foot with neuropathic ulcer Plan: Exam it appears the IV antibiotics are effective in reducing the clinical appearance of the infection of the right foot. We will let infectious disease determine appropriate follow-up for the infection and discharge. Upon discharge patient should follow up in the wound care center as scheduled. Thank you for this consult Time with Patient: Less than 30
[2019-09-25 08:14] LABS: African American GFR (CKD) >90 (>60 ml/min/1.73 sqM); Non-African American GFR(CKD) 79 (>60 ml/min/1.73 sqM)
[2019-09-25] MEDS: PANTOPRAZOLE 40 MG TABLET PO SCH (08:35)
[2019-09-25] MEDS: HEPARIN SODIUM,PORCINE 5,000 UNIT/ML 1 ML VIAL SQ SCH (08:35)
[2019-09-25] MEDS: BRIMONIDINE TARTRATE 0.2% DROPS 5 ML BTL BOTH EYES SCH (08:36)
--- NOTE | 2019-09-25 13:47 | P.DS ---
Providers Date of admission: 09/22/19 15:23 Expected date of discharge: 09/25/19 Attending physician: Marine Ghotra MD Consults: 09/22/19 15:25 Consult Physician Routine Consulting Provider: Topher Leslie Consult Reason/Comments: Right foot cellulitis and osteomyelitis Do you want consulting provider notified?: Yes 09/22/19 16:29 Consult Physician Routine Consulting Provider: Marisabel Garnett Consult Reason/Comments: chronic OM Do you want consulting provider notified?: Yes Primary care physician: Stated None Hospital Course: 83-year-old female with PMH of glaucoma presents to the ED after being sent in by her gang tailer. Patient reports chronic draining wound from the sole of her right foot that has been ongoing for the past 2 years after a callus broke open. She has been seeing a physician in [place] for treatment. She has never received long-term antibiotics. She underwent debridement last week with Dr. Leslie and has noticed redness in her foot that has been progressively getting worse. She was able to follow with her gang tailer today who sent her in to be evaluated for chronic osteomyelitis. Foot x-ray shows findings concerning for early osteomyelitis. In the ED, her blood pressure was elevated to 194/77. CBC was unremarkable. CMP showed BUN of 31 and AST of 45. CPK was 450. CRP was elevated 11.9. Patient is admitted for right foot wound, probable osteomyelitis, podiatry and ID consultation. Patient was noted to be in hypertensive urgency with a BP of 197/100. She was given a one-time dose of hydralazine IV and started on lisinopril and hydrochlorothiazide. Her CRP was elevated. Podiatry was consulted and followed the patient during her hospitalization. ID was consulted and recommended adding vancomycin to Rocephin. She underwent a bone scan that was not conclusive for osteomyelitis. Infectious disease cleared the patient for discharge on Keflex and doxycycline. She was noted to have a prerenal azotemia with a BUN of 31 which improved to 26 at the time of discharge with IV hydration. She did have an elevated AST of 45 that improved to 41 at the time of discharge. Patient consistently refused her antihypertensive medication during her hospitalization. Patient was seen and examined. No acute events overnight. Patient reports improvement in the redness of her foot. She denies any chest pain, shortness of breath or palpitations. No nausea or vomiting. No fever or chills. General: [non toxic], [no distress], [appears at stated age] Derm: [warm], [dry] Head: [atraumatic], [normocephalic], [symmetric] Eyes: [EOMI], [no lid lag], [anicteric sclera] Mouth: [no lip lesion], [mucus membranes moist] Cardiovascular: [S1S2 reg], [no murmur], [positive DP pulse bilateral], Lungs: [CTA bilateral], [no rhonchi, no rales] , [no accessory muscle use] Abdominal: [soft], [ nontender to palpation], [no guarding], [no appreciable organomegaly] Ext: [no gross muscle atrophy], [no edema], [no contractures], [right foot 1" x 1" wound with serosanguineous drainage over the plantar surface with erythema extending to the dorsal aspect of her right foot, improved] Neuro: [no focal neuro deficits] Psych: [Alert], [oriented], [appropriate affect] Hypertensive urgency, now improved Osteomyelitis of the right foot Prerenal azotemia with Elevated CPK Elevated AST Glaucoma Blood pressure is currently 196/86. Patient is no history of hypertension. She complains of no pain. Telemetry monitoring will be ordered. Her vitals be monitored and medications adjusted if necessary. I will send a prescription for lisinopril and hydrochlorothiazide. I advised of warning symptoms of when to come to the ED including intractable headache, dizziness, chest pain, shortness of breath or p alpitations. Patient is continuing to refuse antihypertensive medication at this time and would like to follow-up with her PCP for further direction and recommendations. As seen on foot x-ray. CRP elevated. We'll consult podiatry for further recommendations. Bone scan was reviewed by Dr. Garnett with no concerns of OM. Consult ID for further recommendations on antibiotics. Continue Keflex and doxycycline for a total of 10 days. Her BUN is 31-26. Along with her elevated CPK of 450. This is likely related to dehydration. DC IVF and encourage hydration by mouth. Patient has elevated AST of 45-41. This is of unknown significance. Follow up with PCP in the outpatient setting. I will continue her home medication of brimonidine. [Patient appears to have cellulitis rather than osteomyelitis. She has been cleared for discharge from ID perspective. Plans on DC home with 10 days of Keflex and doxycycline. This complex discharge took about 35 minutes to complete.] Pertinent Studies: bone scan Patient Condition at Discharge: Stable Plan - Discharge Summary Discharge Rx Participant: No New Discharge Prescriptions: New Cephalexin [Keflex] 500 mg PO Q8HR 10 Days #30 cap Doxycycline [Vibramycin] 100 mg PO BID 10 Days #20 capsule Lisinopril-Hctz 10-12.5 mg [Zestoretic 10-12.5] 1 each PO DAILY #30 tab Continue Brimonidine Tartrate [Alphagan P 0.2% Ophth Soln] 1 drops BOTH EYES TID Discontinued Ibuprofen [Advil] 400 mg PO Q6HR PRN PRN Reason: Pain Discharge Medication List Brimonidine Tartrate [Alphagan P 0.2% Ophth Soln] 1 drops BOTH EYES TID 09/22/19 [History] Cephalexin [Keflex] 500 mg PO Q8HR 10 Days #30 cap 09/25/19 [Rx] Doxycycline [Vibramycin] 100 mg PO BID 10 Days #20 capsule 09/25/19 [Rx] Lisinopril-Hctz 10-12.5 mg [Zestoretic 10-12.5] 1 each PO DAILY #30 tab 09/25/19 [Rx] Follow up Appointment(s)/Referral(s): [facility], [NON-STAFF] - 1 Week None,Stated [Primary Care Provider] - 1-2 days [facility], [REFERRING] - 1 Week W[facility]aling[facility]Center [NON-STAFF] - 1 Week (with dr leslie on Wednesday, please call to make appointment ) Topher Leslie DPM [STAFF PHYSICIAN] - 1 Week Patient Instructions/Handouts: Osteomyelitis (DC) Activity/Diet/Wound Care/Special Instructions: activity as tolerated heart healthy diet as tolerated diet: Low-salt Follow-up with PCP within 2 days of discharge. Follow-up with podiatry within 1 week of discharge. Take all medications as advised. Discharge Disposition: HOME SELF-CARE
[2019-09-25] MEDS ORDERED: VANCOMYCIN TROUGH DUE 1 EACH MISC MISCELLANE ONE (14:00)
[2019-09-25 14:48] VITALS: BP 166/81; PULSE 65; RESP 16
--- NOTE | 2019-09-25 17:33 | PN ---
PROGRESS NOTE DATE OF SERVICE: 09/25/2019 REASON FOR FOLLOWUP: Right diabetic foot wound and cellulitis. INTERVAL HISTORY: The patient is currently afebrile. The patient is breathing comfortably. The patient denies having any chest pain. No shortness of breath. No nausea. No pain and right foot swelling has improved. PHYSICAL EXAMINATION: Blood pressure 100/66 pulse of 70, temperature 97.8, she is 98% on room air. General description is an elderly female, lying in bed in no distress. RESPIRATORY SYSTEM: Unlabored breathing, clear to auscultation anteriorly. HEART: S1, S2. Regular rate and rhythm. ABDOMEN: Soft, no tenderness. Right foot dorsum redness has improved. No purulent drainage. Right foot wound on the plantar aspect with no drainage. LABS: Wound culture has been negative. The bone scan was reviewed with radiologist. The patient did not have any uptake on the plantar aspect of the right foot for which patient did have chronic concern. There is some uptake on the dorsum. The patient has cellulitis and she did have significant arthritis. DIAGNOSTIC IMPRESSION AND PLAN: Patient admitted to the hospital with right foot dorsum cellulitis, possibly from gram- positive skin marcy. The patient overall clinical improvement on the vancomycin and Rocephin. Clinical suspicion of underlying osteomyelitis. Will plan on finish therapy with oral Keflex and doxycycline and close outpatient followup. This plan has been discussed in detail with the patient and advised to follow up in the office in about a week. Continue supportive care. MMODL / IJN: [id number] /
--- NOTE | 2019-09-27 08:57 | CDI ---
Documentation Clarification Form Date: 09/27/19 From: Halima Larios Phone: If you have a question about this query, please contact Ernestine Melissa Reports Analysis Manager at [phone] between 8am and 5pm. Admit Date: 09/22/19 Discharge Date:09/25/19 Patient Name: Juana Pop Visit Number: [id number] ATTENTION: The Clinical Documentation Specialists (CDI) and [facility] Coding Staff appreciate your assistance in clarifying documentation. Please respond to the clarification below the line at the bottom and electronically sign. The CDI & [facility] Coding staff will review the response and follow-up if needed. Please note: Queries are made part of the Legal Health Record. If you have any questions, please contact the author of this message via ITS. Dear Dr. Ghotra Conflicting documentation has been found in the medical record: Dr. Garnett documented that the patient's foot ulcer is a diabetic foot wound in his consult note and progress notes. Dr. Reynaga documented that the patient's foot ulcer is a neuropathic ulcer in his consult note. History/Risk Factors: Chronic nonhealing wound of right foot, cellulitis, hypertensive urgency, no history of diabetes documented Clinical Indicators: Wound with erythema, serosanguineous drainage, glucose 93 on 09/21 and 99 on 09/22 Treatment: IV Rocephin, IV Vancomycin, no meds for diabetes, no meds for neuropathy In your opinion, what is the most clinically appropriate diagnosis for this patient? 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
--- NOTE | 2019-09-29 11:26 | CDI ---
Documentation Clarification Form Date: 09/29/19 From: Halima Larios Phone: If you have a question about this query, please contact Ernestine Melsisa, [employer] at [phone] between 8am and 5pm. Admit Date: Discharge Date: Patient Name: Visit Number: ATTENTION: The Clinical Documentation Specialists (CDI) and [facility] Coding Staff appreciate your assistance in clarifying documentation. Please respond to the clarification below the line at the bottom and electronically sign. The CDI & [facility] Coding staff will review the response and follow-up if needed. Please note: Queries are made part of the Legal Health Record. If you have any questions, please contact the author of this message via ITS. Dear Dr. Ghotra A pressure ulcer was documented in your answer to your previous query. History/Risk Factors: Chronic nonhealing wound of the right foot, cellulitis Clinical Indicators: erythema, serosanguineous drainage Location: Sole of the right foot Wound description: erythema, serosanguineous drainage, minimal necrotic tissue Treatment: Aquacel packing In your professional opinion, can you please clarify the diagnosis: Stage 1 Pressure/Decubitus Ulcer (intact skin, non-blanching redness of local area) Stage 2 Pressure/Decubitus Ulcer (Partial thickness, loss of dermis, pink wound bed) Stage 3 Pressure/Decubitus Ulcer (Full thickness tissue loss) Stage 4 Pressure/Decubitus Ulcer (Full thickness tissue loss with exposed bone, tendon, or muscle. May have slough or eschar present) Unstageable Other condition, please specify Unable to determine Please indicate etiology of pressure ulcer (if known). stage 3 MTDD
== END 2019-09-25 15:19 | disposition home health service (06) | DRG 539 ==
LOC: EC 12:57 → 5NMEDONC 15:23
PROVIDERS: ADMIT Family Medicine; ATTEND Family Medicine
DX: M86.171 Other acute osteomyelitis, right ankle and foot (principal); L89.613 Pressure ulcer of right heel, stage 3; L03.115 Cellulitis of right lower limb; G62.9 Polyneuropathy, unspecified; E86.0 Dehydration; F17.200 Nicotine dependence, unspecified, uncomplicated; F41.9 Anxiety disorder, unspecified; H40.9 Unspecified glaucoma; I16.0 Hypertensive urgency; I10 Essential (primary) hypertension; R79.82 Elevated C-reactive protein (CRP); R74.8 Abnormal levels of other serum enzymes; R74.0 Nonspecific elevation of levels of transaminase and lactic acid dehydrogenase [LDH]; M54.31 Sciatica, right side; Z11.59 Encounter for screening for other viral diseases; R79.89 Other specified abnormal findings of blood chemistry; Z88.1 Allergy status to other antibiotic agents; Z88.5 Allergy status to narcotic agent; Z88.8 Allergy status to other drugs, medicaments and biological substances; Z98.51 Tubal ligation status; Z80.9 Family history of malignant neoplasm, unspecified
CPT/HCPCS: 36415; 78315; 80053; 80202; 82550; 82565; 83735; 84134; 85025; 85652; 86140; 87040; 87070; 87075; 87205; 96361; 96374; 96375; 99284

== ENCOUNTER → 2019-10-10 | Outpatient (CLI) | payer MEDICARE ==
--- NOTE | 2019-10-11 12:25 | P.ARTDOP ---
Arterial Doppler LOWER EXTREMITY ARTERIAL DOPPLER: DATE OF SERVICE: 10/10/2019 Reason for study: Ulcer right foot. Doppler waveforms: Multiphasic bilaterally throughout. Pulse volume recording: []. Pressure gradients: None. Ankle-brachial indices: 0.96 on the right and greater than 1 on the left. Toe brachial indices: 0.69 on the right, 0.66 on the left Impression: Normal study.
== END | disposition home or self-care (01) ==
LOC: RADUSWWP 08:40
PROVIDERS: ATTEND Podiatrist
DX: I73.9 Peripheral vascular disease, unspecified (principal)
CPT/HCPCS: 93923

== ENCOUNTER 2020-08-16 08:59 | Day surgery (SDC) | payer MEDICARE ==
[2020-08-15 12:53] VITALS: BMI 27.0
--- NOTE | 2020-08-15 19:40 | HP ---
HISTORY AND PHYSICAL CHIEF COMPLAINT: Perforation of the left tympanic membrane. HISTORY OF PRESENT ILLNESS: This patient is a pleasant 84-year-old female who was recently seen in my office for evaluation of a perforation of left tympanic membrane. In 2016, the patient underwent insertion of a Kartush patch into a perforation of the left tympanic membrane. However, recently the patch apparently came out and the patient noticed that she was once again having difficulty with hearing as well as having some dizziness. At the time that she was seen in the office, clinical examination revealed that the patch had become dislodged and was sitting in the left external auditory canal. It was recommended that the patient undergo reinsertion of a Kartush patch to the left perforated tympanic membrane under IV sedation. PAST MEDICAL HISTORY: Past medical history reveals patient has ALLERGIES TO SULFA MEDICATIONS, VITAMIN E AND SEPTRA. Her current medication is losartan. Her previous surgeries include D and C, insertion of a Kartush patch to a left tympanic membrane perforation, appendectomy. She is 1 6 para 5 miscarriages, including a tubal . REVIEW OF SYSTEMS: Positive with respect to the cardiovascular system, as the patient is known to have hypertension. The remainder of the review of systems is unremarkable. PHYSICAL EXAMINATION: This patient is a very pleasant 84-year-old female who is alert and cooperative. HEENT examination reveals that the right tympanic membrane is normal. Middle ear space is free of any fluid or infection. Examination of the left ear reveals the patient has approximately 10% to 15% central perforation of the left tympanic membrane. The middle ear space is free of any fluid, cholesteatoma or infection. Pupils are equal, round, reactive to light and accommodation. Extraocular movements within normal limits. Intranasal examination reveals moderate to severe septal deviation with compensatory hypertrophy of the inferior turbinates and a moderate amount of mucus on the mucous membranes and draining down the posterior pharynx. Cranial nerves 2 through 12 and remainder of the head and neck exam are within normal limits. CHEST/CARDIOVASCULAR: Both lung garcia are clear to percussion and auscultation. Patient is in regular sinus rhythm. S1, S2 are present without any murmurs, S3s or S4s. Peripheral pulses are bilaterally symmetrical. ABDOMEN: There is no evidence of any masses, megaly or tenderness. The abdomen is soft. Skin is unremarkable. MUSCULOSKELETAL/NEUROLOGICAL: Within normal limits. Pelvic/rectal exam is deferred at this time because the patient has this done on a regular basis at her family physician's office. The remainder of physical exam is unremarkable. IMPRESSION: Perforation of the left tympanic membrane. PLAN: The patient is scheduled undergo insertion of a Kartush patch into a perforation of the left tympanic membrane under IV sedation with MAC or possibly using LMA, depending upon the anesthesia department's preference. ATTENTION RNS IN THE PRE-SURGICAL AREA: I have not ordered any pre-surgical prophylactic antibiotics for this patient. If the pharmacy department sends any pre- surgical prophylactic antibiotics to the pre-surgical area for this patient, that order should be cancelled and the medication should be returned to the pharmacy department. Please make sure that the patient's account is credited appropriately. I have discussed the risks, benefits and alternative therapies for the above-mentioned procedure and for both sedation/analgesia as well as necessary blood product administration, if indicated, as they pertain to this patient. The patient has indicated his or her understanding and acceptance of the risks and procedures discussed. MMTAYLORL / IJN: [id number] /
[~2020-08-16 08:59] MED LIST changes: -BALANCED SALT IRRIG SOLN COMB2 15 ML IRRIG.SOLN IRRIGATION ONE; -CHONDROITIN-SOD HYALURONATE 1 EACH SYRINGE (0.75 ML) INTRAOCULA ONE; -EPINEPHrine (PF) 0.3 ML in BALANCED SALT IRRIG SOLN COMB2 500 ML IRRIGATION ONE; -HYALURONATE SODIUM INTRAOCULAR 1 EACH SYRINGE (12MG/ML) INTRAOCULA ONE; -LACTATED RINGERS 1,000 ML IV ONE; -LIDOCAINE 1% (10MG/ML) FOR IV START INTRADERMA PRN; -LIDOCAINE 1% (PF) 10MG/ML VIAL MISCELLANE ONE; -MOXIFLOXACIN HCL 0.5% DROPS 3 ML BTL OP ONE; +Pre Op ABX Message 1 EACH MISC MISCELLANE ONE; -TETRACAINE 0.5% OPHTH (PF) DROPS 4 ML BTL OP ONE; -TIMOLOL 0.5% OPHTH DROPS 5 ML BTL OP ONE; -TRYPAN BLUE 0.06% SYRINGE 0.5 ML SYRINGE MISCELLANE ONE
[2020-08-16] MEDS ORDERED: ONDANSETRON 4 MG/2 ML VIAL ONE (10:33)
[2020-08-16 10:52] VITALS: TEMP 98.3
[2020-08-16] MEDS ORDERED: fentaNYL (PF) 50 MCG/ML 2 ML AMP ONE (11:02)
[2020-08-16] MEDS ORDERED: PROPOFOL 10 MG/ML 20 ML VIAL IV ONE (11:02)
[2020-08-16 12:51] VITALS: BP 187/93; PULSE 71; RESP 16
--- NOTE | 2020-08-17 17:12 | OP ---
OPERATIVE REPORT DATE OF SURGERY: 08/16/2020. PREOP DIAGNOSIS: Perforation of the left tympanic membrane. POSTOPERATIVE DIAGNOSIS: Perforation of the left tympanic membrane. ANESTHESIA: IV sedation with MAC. OPERATIVE PROCEDURE: Insertion of a 7 mm Kartush patch to a perforation of the left tympanic membrane. OPERATING SURGEON: Dr. Briones. COMPLICATIONS: None. ESTIMATED BLOOD LOSS: Zero. OPERATIVE PROCEDURE: The patient is placed on the operating table in supine position. After uneventful IV sedation, satisfactory sedation was obtained. Next, the patient's left ear was draped in the usual and customary fashion. Following this, using the Zeiss operating microscope and a #3 aural speculum, the left external auditory canal was cleansed of all wax debris and a previously extruded Kartush patch was discarded. Next, inspection of the perforation revealed it to be dry and middle ear space to be dry and free of any fluid, infection or cholesteatoma. Following this, a 7 mm Kartush patch was chosen and was inserted in the usual and customary fashion using a pair of alligator forceps. Next, using a Parson needle, care was taken to make sure that the patch was well seated and all edges were checked. At this point, the procedure was terminated. There were no intraoperative complications. The patient tolerated the procedure well and was returned to the recovery room in satisfactory condition. MMODL / IJN: [id number] /
== END 2020-08-16 12:53 | disposition home or self-care (01) ==
LOC: OR 08:59
PROVIDERS: ATTEND Otolaryngology
DX: H72.92 Unspecified perforation of tympanic membrane, left ear (principal); Z90.89 Acquired absence of other organs; I10 Essential (primary) hypertension; Z79.899 Other long term (current) drug therapy; Z98.890 Other specified postprocedural states; Z87.891 Personal history of nicotine dependence; Z88.8 Allergy status to other drugs, medicaments and biological substances; Z88.1 Allergy status to other antibiotic agents; Z88.2 Allergy status to sulfonamides; Z88.5 Allergy status to narcotic agent
CPT/HCPCS: 69610; J2405; J3010; J2704

== ENCOUNTER 2022-01-21 07:17 | Day surgery (SDC) | payer MEDICARE ==
[2022-01-19 15:47] VITALS: BMI 26.2
[2022-01-21] MEDS: CYCLOPENTOLATE 1% OPHTH SOLN 2 ML BTL OP PRN ×4 (05:24→08:24)
[~2022-01-21 07:17] MED LIST changes: +LIDOCAINE 1% (10MG/ML) FOR IV START INTRADERMA PRN; -Pre Op ABX Message 1 EACH MISC MISCELLANE ONE; +TETRACAINE 0.5% OPHTH (PF) DROPS 4 ML BTL OP PRN
[2022-01-21 08:08] VITALS: TEMP 97.8
[2022-01-21] MEDS: PHENYLEPHRINE 2.5% OPHTH DRP 2ML OP PRN ×3 (08:08→08:27)
[2022-01-21] MEDS ORDERED: LACTATED RINGERS 1,000 ML IV ONE (08:28)
[2022-01-21] MEDS ORDERED: hydrALAZINE HCL 20 MG/ML 1 ML VIAL ONE (09:01)
[2022-01-21] MEDS ORDERED: fentaNYL (PF) 50 MCG/ML 2 ML AMP ONE (09:01)
[2022-01-21] MEDS ORDERED: MIDAZOLAM 2 MG/2 ML VIAL ONE (09:01)
[2022-01-21] MEDS ORDERED: METOPROLOL TARTRATE 5 MG/5 ML VIAL IVP ONE (09:01)
[2022-01-21] MEDS ORDERED: EPINEPHrine (PF) 0.3 ML in BALANCED SALT IRRIG SOLN COMB2 500 ML IRRIGATION ONE (09:05)
[2022-01-21] MEDS ORDERED: BALANCED SALT IRRIG SOLN COMB2 15 ML IRRIG.SOLN IRRIGATION ONE (09:26)
[2022-01-21] MEDS ORDERED: LIDOCAINE 1% (PF) 10MG/ML VIAL MISCELLANE ONE (09:27)
[2022-01-21] MEDS ORDERED: DUOVISC KIT (GREEN BOX) INTRAOCULA ONE (09:27)
[2022-01-21] MEDS ORDERED: TRYPAN BLUE 0.06% SYRINGE 0.5 ML SYRINGE INTRAOCULA ONE (09:28)
[2022-01-21] MEDS: MOXIFLOXACIN HCL 0.5% DROPS 3 ML BTL OP PRN ×2 (09:29→09:53)
[2022-01-21] MEDS: TIMOLOL 0.5% OPHTH DROPS 5 ML BTL OP PRN ×2 (09:29→09:53)
--- NOTE | 2022-01-21 09:54 | P.OP ---
Date of Procedure: 01/21/22 Preoperative Diagnosis: NS & CS & PSC Postoperative Diagnosis: same Procedure(s) Performed: PIOL< OD Implants: [id number] 500 20.50 Anesthesia: MAC Theatre Program Director #1: Zafar Valentino Pathology: none sent Condition: stable Disposition: same day Indications for Procedure: blurry vision Operative Findings: no complications
[2022-01-21 10:27] VITALS: BP 132/62; PULSE 63; RESP 18
--- NOTE | 2022-01-21 12:16 | OP ---
OPERATIVE REPORT PROCEDURES PERFORMED: Phacoemulsification of cataract and intraocular lens implant of the right eye with goniotomy of the right eye. PREOPERATIVE DIAGNOSES: Nuclear sclerosis, cortical sclerosis, posterior subcapsular cataract, pseudoexfoliation, and regular astigmatism. POSTOPERATIVE DIAGNOSES: Nuclear sclerosis, cortical sclerosis, posterior subcapsular cataract, pseudoexfoliation, and regular astigmatism. ANESTHESIA: Topical. ESTIMATED BLOOD LOSS: Less than 5 mL. SPECIMEN TAKEN: None. NARRATIVE: After obtaining the appropriate consent, the patient was brought to the operating room. There, she was asked to sit upright and the axes of 0 and 180 degrees were identified and marked with a gentian abdias marker. She was then placed in the proper supine position under cardiac monitoring and prepped and draped in the usual sterile manner. She was approached from her right temporal side. Using previously-acquired corneal topography information, the axis of 12 degrees was identified and marked with a [employer] axis marker. At the 11 o'clock position, an MVR blade was used to create a paracentesis port. Through this opening, 1% Xylocaine MPF 50:50 mix with balanced salt solution was injected into the anterior chamber. This was followed by Trypan blue, which was left to dwell in the eye for approximately 1 minute. At the end of that time, the Trypan blue was irrigated away from the eye, and the anterior chamber was then stabilized with Viscoat. At the 9 o'clock position, a 2.5 mm keratome was used to create a self-sealing corneal flap incision. The patient was then asked to rotate her head approximately 45 degrees to her left and maintain a gaze in that general direction. A gonioprism was placed on the patient's eye, and a [employer] dual blade goniotomy knife was passed across the anterior chamber to perform an inside-out technique. Approximately, 4-clock hours of trabecular meshwork was removed. Minimal bleeding was encountered during the procedure. She was then rotated back to normal supine position, and a cystotome was introduced to begin a continuous tear capsulorrhexis, which was then completed using the Utrata forceps. Hydrodissection and hydrodelineation of the lens were accomplished in 26.7 seconds at 18% power. Additional Xylocaine MPF was instilled into the anterior chamber. This was followed by placement of capsular tension ring of 13 mm into the capsular bag without difficulty. It was appreciated while inserting the ring that there was some moderate laxity appreciated in the zonules holding the capsular bag, though there were no areas of specific zonular loss. This was followed by removal of the remaining cortex under irrigation and aspiration as well as very careful polishing of the posterior capsule in the capsule vacuum mode. Provisc was then used to stabilize the capsular bag, and a Bausch [employer] Lomb MX60ET 20.5-diopter x 5-diopter astigmatic lens was inserted into the capsular bag without difficulty. The lens was rotated approximately 180 degrees to help remove some remaining cortex under the incision. Once this was accomplished, then the lens was rotated finely to be oriented with the 12-degree axis marked on the patient's cornea. The lens was tamponaded with the tip of the irrigation and aspiration unit and then was gently removed from the anterior chamber of the eye. The temporal wound was hydrated with balanced salt solution, as was the paracentesis port, and the eye was brought to the slightly above normal intraocular pressure at the end of the case. Both incisions were confirmed to be watertight. She then received 2 drops of 0.5% timolol followed by 2 drops of moxifloxacin. She was then lightly patched and shielded in the usual manner. There were no complications from the procedure. She tolerated the procedure well and was returned to outpatient recovery in good condition. YULIANA / LINETTE: [id number] /
== END 2022-01-21 11:23 | disposition home or self-care (01) ==
LOC: OR 07:17
PROVIDERS: ATTEND Ophthalmology
DX: H40.1332 Pigmentary glaucoma, bilateral, moderate stage (principal); H25.11 Age-related nuclear cataract, right eye; I10 Essential (primary) hypertension; F17.210 Nicotine dependence, cigarettes, uncomplicated
CPT/HCPCS: 66984; V2632; J2250; J0360; J0171; J3010; J2001

== ENCOUNTER 2022-05-15 07:02 | Day surgery (SDC) | payer MEDICARE ==
[2022-05-13 09:01] VITALS: BMI 24.2
[~2022-05-15 07:02] MED LIST changes: +ATROPINE OPHTH SOLN 1% 5ML BTL OPHTHALMIC PRN; -LACTATED RINGERS 1,000 ML IV SCH; -LIDOCAINE 1% (10MG/ML) FOR IV START INTRADERMA PRN; +MOXIFLOXACIN HCL 0.5% DROPS 3 ML BTL OP PRN; +TIMOLOL 0.5% OPHTH DROPS 5 ML BTL OP PRN
[2022-05-15] MEDS ORDERED: LACTATED RINGERS 1,000 ML IV SCH (07:18)
[2022-05-15 07:42] VITALS: TEMP 98
[2022-05-15] MEDS ORDERED: fentaNYL (PF) 50 MCG/ML 2 ML AMP ONE (08:30)
[2022-05-15] MEDS ORDERED: MIDAZOLAM 2 MG/2 ML VIAL ONE (08:30)
--- NOTE | 2022-05-15 09:00 | P.OP ---
Date of Procedure: 05/15/22 Preoperative Diagnosis: clotted hyphema right eye Postoperative Diagnosis: same Procedure(s) Performed: anterior chamber washout Implants: none Anesthesia: MAC Surgeon: Zafar Valentino Pathology: none sent Condition: stable Disposition: same day Indications for Procedure: stationary clot filling anterior segment of eye Operative Findings: no complications
[2022-05-15] MEDS ORDERED: BALANCED SALT IRRIG SOLN COMB2 15 ML IRRIG.SOLN INTRAOCULA ONE (09:04)
[2022-05-15 09:36] VITALS: BP 156/73; PULSE 64; RESP 15
--- NOTE | 2022-05-15 11:36 | OP ---
OPERATIVE REPORT DATE OF SERVICE : 05/15/2022 PROCEDURE PERFORMED: Anterior chamber washout of the right eye. PREOPERATIVE DIAGNOSIS: Eight-ball hyphema right eye. 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 ANESTHESIA: Topical. ESTIMATED BLOOD LOSS: 1 mL. SPECIMEN TAKEN: None. NARRATIVE: After obtaining the appropriate consent, the patient was brought to the operating room. There she was placed under cardiac monitoring, prepped and draped in the usual sterile manner. She was approached from her right temporal side and at the 11 o'clock position, an MVR blade was used to create a paracentesis port. Through this opening, 1% Xylocaine MPF 50:50 mix with balanced salt solution was injected into the anterior chamber. At the 9 o'clock position, a 2.5 mm keratome was used to create a self- sealing corneal flap incision. The patient exhibited a lot of discomfort from the temporal incision and standard irrigation aspiration was not able to be performed regardless of additional intravenous or topical medications to relieve her discomfort. Therefore, a simple irrigation of the anterior chamber permitted evacuation of a large portion of the blood which was contained in the anterior chamber. Once the blood was cleared away, it was easy to see that there was significant rubeosis around the pupillary sphincter in this eye. There was no additional bleeding encountered during the course of the procedure that was able to be seen. The eye was then brought to normal intraocular pressure through the paracentesis port and she then received 2 drops of 0.5% timolol followed by 2 drops of 0.5% moxifloxacin. She was then lightly patched and shielded in the usual manner. There were no complications from the procedure. She tolerated the procedure fair and was returned to outpatient recovery in good condition. MMODL / IJN: [id number] / RITO
== END 2022-05-15 10:17 ==
LOC: OR 07:02
PROVIDERS: ATTEND Ophthalmology
DX: H21.01 Hyphema, right eye (principal); H40.053 Ocular hypertension, bilateral; H40.1132 Primary open-angle glaucoma, bilateral, moderate stage; H34.8310 Tributary (branch) retinal vein occlusion, right eye, with macular edema; H40.1430 Capsular glaucoma with pseudoexfoliation of lens, bilateral, stage unspecified; H43.813 Vitreous degeneration, bilateral; H52.13 Myopia, bilateral; H52.4 Presbyopia; Z96.1 Presence of intraocular lens; Z96.41 Presence of insulin pump (external) (internal); Z79.899 Other long term (current) drug therapy
CPT/HCPCS: 66999; J2250; J3010

== ENCOUNTER 2022-07-08 21:48 | Emergency (ER) | payer MEDICARE, OTHER ==
--- NOTE | 2022-07-08 22:26 | ED ---
Altered Mental Status HPI - General Source: EMS Mode of arrival: EMS <Bahman Nash - Last Filed: 07/08/22 22:24> <Anderson Ray - Last Filed: 07/09/22 01:45> - General Chief Complaint: Altered Mental Status Stated Complaint: AMS Time Seen by Provider: 07/08/22 22:11 - History of Present Illness Initial Comments: Patient is an 86-year-old female history of dementia and hypertension sent in from [facility] for increased aggression with staff and other residents. At this time patient is alert and oriented to self, she denies any chest pain, difficulty breathing, abdominal pain, nausea, vomiting, cough. She is cooperative and pleasant while obtaining the history. No signs of distress. She is resting comfortably. She does not remember being aggressive towards staff or residents at the residential. (Bahman Nash) - Related Data Home Medications Medication Instructions Recorded Confirmed Eye Drop Rt Eye 1 drop RIGHT EYE DIRECTED 01/19/22 05/13/22 Atorvastatin [Lipitor] 20 mg PO DAILY 05/13/22 05/13/22 amLODIPine 10 mg PO QAM 05/13/22 05/13/22 carvediloL [Coreg] 3.125 mg PO BID 05/13/22 05/13/22 Previous Rx's Medication Instructions Recorded Amoxic-Pot Clav 875-125Mg 1 tab PO Q12HR 10 Days #20 tab 07/09/22 [Augmentin 875-125] Azithromycin [Zithromax Z Pack] 1 tab PO DIRECTED #6 tab 07/09/22 Allergies Allergy/AdvReac Type Severity Reaction Status Date / Time vitamin E (d-alpha Allergy Rash/Hives Verified 07/08/22 22:06 tocopherol) [vitamin E] Antihistamines - Alkylamine AdvReac Rapid Verified 07/08/22 22:06 Heart Rate morphine AdvReac Hallucinati Verified 07/08/22 22:06 ons Review of Systems ROS Other: All systems not noted in ROS Statement are negative. <Bahman Nash - Last Filed: 07/08/22 22:24> ROS Other: All systems not noted in ROS Statement are negative. <Anderson Ray - Last Filed: 07/09/22 01:45> ROS Statement: Those systems with pertinent positive or pertinent negative responses have been documented in the HPI. Past Medical History Past Medical History: Unable to Obtain, Dementia, Eye Disorder, Hypertension, Musculoskeletal Disorder, Skin Disorder Additional Past Medical History / Comment(s): bleeding in rt eye,able to stand to pivot transfer,uses w/c,perforation left ear, sciatica down right leg @times, sinus problems, wound on right foot arch-current History of Any Multi-Drug Resistant Organisms: None Reported Past Surgical History: Unable to Obtain, Tubal Ligation Additional Past Surgical History / Comment(s): surg. for ectopic , left ear surg,glaucoma procedure maty eyes Past Anesthesia/Blood Transfusion Reactions: Postoperative Nausea & Vomiting (PONV) Additional Past Anesthesia/Blood Transfusion Reaction / Comment(s): very slow to wake from anesthesia. no known blood transfusion Past Psychological History: No Psychological Hx Reported Smoking Status: Former smoker Past Alcohol Use History: Unable to Obtain Past Drug Use History: Unable to Obtain - Past Family History Mother Family Medical History: Cancer <Bahman Nash - Last Filed: 07/08/22 22:24> General Exam Limitations: altered mental status (Baseline) General appearance: alert, in no apparent distress Head exam: Present: atraumatic, normocephalic, normal inspection Eye exam: Present: normal appearance, EOMI. Absent: periorbital swelling, periorbital tenderness Neck exam: Present: normal inspection, full ROM Respiratory exam: Present: normal lung sounds bilaterally. Absent: respiratory distress, wheezes, rales, rhonchi, stridor Cardiovascular Exam: Present: regular rate, normal rhythm, normal heart sounds. Absent: systolic murmur, diastolic murmur, rubs, gallop, clicks GI/Abdominal exam: Present: soft. Absent: distended, tenderness, guarding, rebound, rigid Neurological exam: Present: alert, altered (Baseline) Psychiatric exam: Present: normal affect, normal mood Skin exam: Present: warm, dry, intact, normal color. Absent: rash <Bahman Nash - Last Filed: 07/08/22 22:24> Course Vital Signs 07/08/22 07/09/22 21:58 00:26 Temperature 97.8 F 97.7 F Pulse Rate 78 68 Respiratory 17 16 Rate Blood Pressure 109/55 121/70 O2 Sat by Pulse 97 98 Oximetry Medical Decision Making - Lab Data Result diagrams: 07/08/22 23:27 07/08/22 23:27 <Anderson Ray - Last Filed: 07/09/22 01:45> - Medical Decision Making Was pt. sent in by a medical professional or institution (, [facility], PLASTERING SUPERVISOR, urgent care, hospital, or residential...) When possible be specific @ -[No] Did you speak to anyone other than the patient for history (EMS, parent, family, police, friend...)? What history was obtained from this source @ -[No] Did you review nursing and triage notes (agree or disagree)? Why? @ -[I reviewed and agree with nursing and triage notes] Were old charts reviewed (outside hosp., previous admission, EMS record, old EKG, old radiological studies, urgent care reports/EKG's, residential records)? Report findings @ -[No old charts were reviewed] Differential Diagnosis (chest pain, altered mental status, abdominal pain women, abdominal pain men, vaginal bleeding, weakness, fever, dyspnea, syncope, headache, dizziness, GI bleed, back pain, seizure, CVA, palpatations, mental health, musculoskeletal)? @ -Differential Altered Mental Status: Hypoglycemia, DKA, hypercapnia, ETOH, overdose, CO poisoning, trauma, myxedema coma, HTN encephalopathy, infection, encephalitis, psychosis, intercranial hemorrhage, hepatic encephalopathy, meningitis, CVA, this is not meant to be an all-inclusive list EKG interpreted by me (3pts min.). @ -[As above] X-rays interpreted by me (1pt min.). @ -Chest x-ray showing lobar pneumonia on the right CT interpreted by me (1pt min.). @ -[None done] U/S interpreted by me (1pt. min.). @ -[None done] What testing was considered but not performed or refused? (CT, X-rays, U/S, la bs)? Why? @ -[None] What meds were considered but not given or refused? Why? @ -[None] Did you discuss the management of the patient with other professionals (professionals i.e. [facility], PLASTERING SUPERVISOR, lab, RT, psych nurse, oncology social worker, sales route driver, teacher, bank secrecy act officer, case operator)? Give summary @ -[No] Was smoking cessation discussed for >3mins.? @ -[No] Was critical care preformed (if so, how long)? @ -[No] Were there social determinants of health that impacted care today? How? (Homelessness, low income, unemployed, alcoholism, drug addiction, transportation, low edu. Level, literacy, decrease access to med. care, custodial, rehab)? @ -[No] Was there de-escalation of care discussed even if they declined (Discuss DNR or withdrawal of care, Hospice)? DNR status @ -[No] What co-morbidities impacted this encounter? (DM, HTN, Smoking, COPD, CAD, Cancer, CVA, ARF, Chemo, Hep., AIDS, mental health diagnosis, sleep apnea, morbid obesity)? @ -[None] Was patient admitted / discharged? Hospital course, mention meds given and route, prescriptions, significant lab abnormalities, going to OR and other pe rtinent info. @ -[86-year-old female with presents from the residential with episode of aggression. Patient afebrile with stable vitals. She has been calm and cooperative in the emergency department. Workup does reveal a lobar pneumonia. She has some mild laboratory abnormalities including a TIA, anemia. She receives IV fluids and IV antibiotics in the emergency department. She is not hypoxic and in no acute distress. She is stable for discharge with oral antibiotics. She will be monitored at the residential are she resides.] Undiagnosed new problem with uncertain prognosis? @ -[No] Drug Therapy requiring intensive monitoring for toxicity (Heparin, Nitro, Insulin, Cardizem)? @ -[No] Were any procedures done? @ -[No] Diagnosis/symptom? @ -[Pneumonia Acute, or Chronic, or Acute on Chronic? @ -[Acute] Uncomplicated (without systemic symptoms) or Complicated (systemic symptoms)? @ -[Uncomplicated] Side effects of treatment? @ -[No] Exacerbation, Progression, or Severe Exacerbation? @ -[No] Poses a threat to life or bodily function? How? (Chest pain, USA, NM, pneumonia, PE, COPD, DKA, ARF, appy, cholecystitis, CVA, Diverticulitis, Homicidal, Suicidal, threat to staff... and all critical care pts) @ -[Yes, pneumonia, sepsis, (Anderson Ray) - Lab Data Lab Results 07/08/22 07/08/22 07/08/22 Range/Units 23:27 23:27 23:27 WBC 5.4 (3.8-10.6) k/uL RBC 3.09 L (3.80-5.40) m/uL Hgb 9.2 L (11.4-16.0) gm/dL Hct 27.4 L (34.0-46.0) % MCV 88.7 (80.0-100.0) fL MCH 29.7 (25.0-35.0) pg MCHC 33.4 (31.0-37.0) g/dL RDW 16.0 H (11.5-15.5) % Plt Count 233 (150-450) k/uL MPV 9.6 Neutrophils % 55 % Lymphocytes % 30 % Monocytes % 6 % Eosinophils % 6 % Basophils % 1 % Neutrophils # 3.0 (1.3-7.7) k/uL Lymphocytes # 1.6 (1.0-4.8) k/uL Monocytes # 0.3 (0-1.0) k/uL Eosinophils # 0.3 (0-0.7) k/uL Basophils # 0.0 (0-0.2) k/uL Anisocytosis Slight PT (9.0-12.0) sec INR (<1.2) APTT (22.0-30.0) sec Sodium 136 L (137-145) mmol/L Potassium 3.8 (3.5-5.1) mmol/L Chloride 111 H (98-107) mmol/L Carbon Dioxide 16 L (22-30) mmol/L Anion Gap 9 mmol/L BUN 29 H (7-17) mg/dL Creatinine 1.37 H (0.52-1.04) mg/dL Est GFR (CKD-EPI)AfAm 40 (>60 ml/min/1.73 sqM) Est GFR (CKD-EPI)NonAf 35 (>60 ml/min/1.73 sqM) Glucose 132 H (74-99) mg/dL Calcium 8.5 (8.4-10.2) mg/dL Total Bilirubin 0.1 L (0.2-1.3) mg/dL AST 23 (14-36) U/L ALT 15 (4-34) U/L Alkaline Phosphatase 77 (38-126) U/L Ammonia 17 (<30) umol/L Total Protein 6.0 L (6.3-8.2) g/dL Albumin 3.1 L (3.5-5.0) g/dL Urine Color Urine Appearance (Clear) Urine pH (5.0-8.0) Ur Specific [place] (1.001-1.035) Urine Protein (Negative) Urine Glucose (UA) (Negative) Urine Ketones (Negative) Urine Blood (Negative) Urine Nitrite (Negative) Urine Bilirubin (Negative) Urine Urobilinogen (<2.0) mg/dL Ur Leukocyte Esterase (Negative) Urine RBC (0-5) /hpf Urine WBC (0-5) /hpf Ur Squamous Epith Cells (0-4) /hpf Amorphous Sediment (None) /hpf Urine Bacteria (None) /hpf Hyaline Casts (0-2) /lpf 07/08/22 07/08/22 Range/Units 23:52 23:52 WBC (3.8-10.6) k/uL RBC (3.80-5.40) m/uL Hgb (11.4-16.0) gm/dL Hct (34.0-46.0) % MCV (80.0-100.0) fL MCH (25.0-35.0) pg MCHC (31.0-37.0) g/dL RDW (11.5-15.5) % Plt Count (150-450) k/uL MPV Neutrophils % % Lymphocytes % % Monocytes % % Eosinophils % % Basophils % % Neutrophils # (1.3-7.7) k/uL Lymphocytes # (1.0-4.8) k/uL Monocytes # (0-1.0) k/uL Eosinophils # (0-0.7) k/uL Basophils # (0-0.2) k/uL Anisocytosis PT 10.2 (9.0-12.0) sec INR 1.0 (<1.2) APTT 23.8 (22.0-30.0) sec Sodium (137-145) mmol/L Potassium (3.5-5.1) mmol/L Chloride (98-107) mmol/L Carbon Dioxide (22-30) mmol/L Anion Gap mmol/L BUN (7-17) mg/dL Creatinine (0.52-1.04) mg/dL Est GFR (CKD-EPI)AfAm (>60 ml/min/1.73 sqM) Est GFR (CKD-EPI)NonAf (>60 ml/min/1.73 sqM) Glucose (74-99) mg/dL Calcium (8.4-10.2) mg/dL Total Bilirubin (0.2-1.3) mg/dL AST (14-36) U/L ALT (4-34) U/L Alkaline Phosphatase (38-126) U/L Ammonia (<30) umol/L Total Protein (6.3-8.2) g/dL Albumin (3.5-5.0) g/dL Urine Color Yellow Urine Appearance Cloudy H (Clear) Urine pH 7.0 (5.0-8.0) Ur Specific [place] 1.013 (1.001-1.035) Urine Protein Negative (Negative) Urine Glucose (UA) Negative (Negative) Urine Ketones Negative (Negative) Urine Blood Negative (Negative) Urine Nitrite Negative (Negative) Urine Bilirubin Negative (Negative) Urine Urobilinogen <2.0 (<2.0) mg/dL Ur Leukocyte Esterase Negative (Negative) Urine RBC <1 (0-5) /hpf Urine WBC 3 (0-5) /hpf Ur Squamous Epith Cells <1 (0-4) /hpf Amorphous Sediment Rare H (None) /hpf Urine Bacteria Rare H (None) /hpf Hyaline Casts 1 (0-2) /lpf Disposition <Bahman Nash - Last Filed: 07/08/22 22:24> Is patient prescribed a controlled substance at d/c from ED?: No Time of Disposition: 01:43 <Anderson Ray - Last Filed: 07/09/22 01:45> Clinical Impression: Altered mental status, Pneumonia Disposition: HOME SELF-CARE Condition: Fair Instructions (If sedation given, give patient instructions): Altered Mental Status (ED), Bacterial Pneumonia (ED) Prescriptions: Amoxic-Pot Clav 875-125Mg [Augmentin 875-125] 1 tab PO Q12HR 10 Days #20 tab Azithromycin [Zithromax Z Pack] 1 tab PO DIRECTED #6 tab Referrals: Kristian Ferguson MD [REFERRING] - 1-2 days
--- NOTE | 2022-07-08 23:08 | XR ---
EXAMINATION TYPE: XR chest 1V DATE OF EXAM: 07/08/2022 COMPARISON: NONE HISTORY: Altered mental status TECHNIQUE: FINDINGS: Heart size is normal. There is some 5 cm area of consolidation in the lateral right upper l obe coarse interstitial infiltrate in the lung garcia. No pleural effusion. No heart failure. There i s arthritic changes right shoulder joint. IMPRESSION: Pulmonary fibrosis. Right upper lobe pneumonia. No heart failure seen.
[2022-07-08] MEDS ORDERED: AZITHROMYCIN 500 MG in SODIUM CHLORIDE 0.9% 250 ML IVPB STA (23:55)
[2022-07-08] MEDS ORDERED: cefTRIAXone IN SWFI 1,000 MG/10 ML SYRINGE IVP STA (23:55)
[2022-07-09 00:12] LABS: Anisocytosis Slight; Basophils % (A) 1 %; Eosinophils # (A) 0.3 k/uL (0-0.7); Eosinophils % (A) 6 %; HCT 27.4 % (34.0-46.0); HGB 9.2 gm/dL (11.4-16.0); Lymphocytes # (A) 1.6 k/uL (1.0-4.8); Lymphocytes % (A) 30 %; MCH 29.7 pg (25.0-35.0); MCHC 33.4 g/dL (31.0-37.0); MCV 88.7 fL (80.0-100.0); Mean Platelet Volume 9.6; Monocytes # (A) 0.3 k/uL (0-1.0); Monocytes % (A) 6 %; Neutrophils % (A) 55 %; Platelet Count 233 k/uL (150-450); RBC 3.09 m/uL (3.80-5.40); WBC 5.4 k/uL (3.8-10.6)
[2022-07-09 00:25] LABS: Partial Thromboplastin Time 23.8 sec (22.0-30.0); Prothrombin Time 10.2 sec (9.0-12.0)
[2022-07-09 00:30] LABS: Albumin 3.1 g/dL (3.5-5.0); Calcium 8.5 mg/dL (8.4-10.2); Potassium 3.8 mmol/L (3.5-5.1); Total Bilirubin 0.1 mg/dL (0.2-1.3)
[2022-07-09 01:15] LABS: Amorphous Sediment,Urine Rare /hpf; Appearance,Urine Cloudy (Clear); Bacteria,Urine Rare /hpf; Bilirubin,Urine Negative (Negative); Blood,Urine Negative (Negative); Color,Urine Yellow; Glucose,Urine (UA) Negative (Negative); Hyaline Casts,Urine 1 /lpf (0-2); Ketones,Urine Negative (Negative); Leukocyte Esterase,Urine Negative (Negative); Nitrite,Urine Negative (Negative); Protein,Urine Negative (Negative); RBC,Urine <1 /hpf (0-5); Specific Gravity,Urine 1.013 (1.001-1.035); Squamous Epithelial Cell,Urine <1 /hpf (0-4); Urobilinogen,Urine <2.0 mg/dL (<2.0); WBC,Urine 3 /hpf (0-5)
[2022-07-09] MEDS ORDERED: SODIUM CHLORIDE 0.9% 1,000 ML IV ONE (01:37)
[2022-07-09 02:33] VITALS: BP 114/64; PULSE 73; RESP 17; TEMP 98
== END 2022-07-09 02:33 | disposition home or self-care (01) ==
LOC: EC 21:48
DX: J18.9 Pneumonia, unspecified organism (principal); R41.82 Altered mental status, unspecified; I10 Essential (primary) hypertension; F03.90 Unspecified dementia, unspecified severity, without behavioral disturbance, psychotic disturbance, mood disturbance, and anxiety; Z87.891 Personal history of nicotine dependence; Z88.5 Allergy status to narcotic agent; Z91.018 Allergy to other foods; Z88.8 Allergy status to other drugs, medicaments and biological substances; Z79.899 Other long term (current) drug therapy
CPT/HCPCS: 36415; 71045; 80053; 81001; 82140; 85025; 85610; 85730; 96365; 96366; 96375; 99285

== ENCOUNTER → 2022-07-29 | Outpatient (CLI) | payer MEDICARE, OTHER ==
--- NOTE | 2022-07-29 14:56 | CT ---
EXAMINATION TYPE: CT chest wo con CT DLP: 306 mGycm, Automated exposure control for dose reduction was used. DATE OF EXAM: 07/29/2022 2:10 PM COMPARISON: Chest radiograph 07/08/2022. CLINICAL INDICATION:Female, 86 years old with history of R91.8; PHH, RUL abnormality TECHNIQUE: Multiple axial images were obtained through the chest without IV contrast. Lack of IV or o ral contrast limits evaluation of solid and hollow organ viscera. FINDINGS: LUNGS/ PLEURA: No pleural effusion or pneumothorax. There is opacification of the right upper lobe w ith atelectasis. Elevation the right hemidiaphragm. Moderate centrilobular emphysematous changes with bilateral lower lobe honeycombing. AIRWAY: Abrupt cut off of the right upper lobe bronchus (series 3, image 16).. HEART: Size within normal limits. No pericardial effusion. Mild coronary artery calcifications. MEDIASTINUM: There is masslike appearance in the right pulmonary hilum. Dilation is limited due to la ck of intravenous contrast. VASCULATURE: No aortic aneurysm. Atherosclerotic calcifications aorta and its branches. MUSCULOSKELETAL: No acute osseous abnormalities. Diffuse bony demineralization. Severe arthropathy of the right shoulder. There is a fluid collection along the lateral aspect of the right shoulder measu ring 7.2 x 3.7 cm which may represent a bursal collection. Remote posterior right 11th rib fracture. No aggressive osseous lesion. Moderate degenerative disc disease most pronounced involving the lumbar spine. SOFT TISSUES/LYMPH NODES: Unremarkable. LOWER NECK: No significant findings. UPPER ABDOMEN: No significant findings. IMPRESSION: 1. Atelectasis with opacification of the right upper lobe and abrupt cut off of the upper lobe bronch us. Additionally there is masslike appearance in the right hilum. Findings are concerning for primary lung malignancy. Evaluation is limited due to lack of intravenous contrast. Dedicated CT chest with IV contrast is recommended. 2. Moderate interstitial pulmonary fibrotic changes. Next line 3. Severe right shoulder arthropathy with fluid collection along the lateral aspect of the shoulder w hich may represent a bursal collection. Clinical correlation is recommended. A Yellow level critical message alert has been initiated for Judson Styles DO via the [employer] Critical Results System on 07/29/2022 2:53 PM. This message alert has been sent to Judson barger DO via the preferences provided by the clinician for the receipt of Radiology Critical Findings. Matilda essage ID [id number].
== END | disposition home or self-care (01) ==
LOC: RADCTMAIN 13:30
PROVIDERS: ATTEND Family Medicine
DX: J98.11 Atelectasis (principal); J84.9 Interstitial pulmonary disease, unspecified; R91.8 Other nonspecific abnormal finding of lung field; M19.011 Primary osteoarthritis, right shoulder
CPT/HCPCS: 71250

== ENCOUNTER → 2022-09-03 | Outpatient (CLI) | payer MEDICARE, OTHER ==
--- NOTE | 2022-09-03 14:40 | CT ---
EXAMINATION TYPE: CT brain wo con CT DLP: 978.2 mGycm, Automated exposure control for dose reduction was used. DATE OF EXAM: 09/03/2022 2:10 PM COMPARISON: None.. CLINICAL INDICATION:Female, 86 years old with history of R41.82 ALTERED MENTAL STATUS, ams TECHNIQUE: Brain: Axial CT images of the brain were obtained with coronal and sagittal reformats created and rev iewed. Contrast used: None. Oral contrast used: None. FINDINGS: Brain: Extra-axial spaces: No abnormal extra-axial fluid collections. Ventricular system: Dilatation in proportion to cerebral atrophy. Cerebral parenchyma: Cerebral atrophy. No acute intraparenchymal hemorrhage or mass effect. There is a small left posterior frontal lobe focus of erwin-white matter differentiation loss. The remainder o f the erwin-white junctions are well differentiated. Scattered hypoattenuating areas are seen within t he white matter. Cerebellum: Unremarkable. Mass effect: No evidence of midline shift. Intracranial vasculature: Atherosclerotic calcifications of the intracranial vessels. Soft tissues: Normal. Calvarium/osseous structures: No depressed skull fracture. Paranasal sinuses and mastoid air cells: Mild scattered paranasal sinus disease. Visualized orbits: Senile calcific scleral plaques are present. IMPRESSION: 1. There is a small left posterior frontal lobe focus of erwin-white matter differentiation loss. Cons ider MRI for further evaluation to rule out acute/subacute CVA. 2. Nonspecific white matter changes, likely secondary to chronic small vessel ischemic disease.
== END | disposition home or self-care (01) ==
LOC: RADCTMAIN 13:52
PROVIDERS: ATTEND Internal Medicine Critical Care Medicine
DX: R90.82 White matter disease, unspecified (principal); R41.82 Altered mental status, unspecified
CPT/HCPCS: 70450

== ENCOUNTER 2022-10-19 09:57 | Inpatient (IN) | payer MEDICARE, OTHER ==
--- NOTE | 2022-10-19 10:11 | ED ---
General Adult HPI - General Chief complaint: Shortness of Breath Stated complaint: AMS Time Seen by Provider: 10/19/22 10:00 Source: patient, EMS, RN notes reviewed, old records reviewed Mode of arrival: EMS Limitations: altered mental status - History of Present Illness Initial comments: This is an 86-year-old female presents emergency department from the half-way. intermediate sent the patient in because they stated she was altered. Patient also was having a low pulse ox in the 70s on 2 L was only in the 80s but according to EMS and on 2 L and she was 94-[address] Patient herself denies any pain. Patient not even sure why she had to come to the emergency department. Patient denies any fever chills. Patient denies abdominal pain patient denies nausea vomiting. Patient states when I prompt her that she always has difficulty breathing in the morning. Patient denies any headache patient denies numbness weakness. Patient is alert to self and place - Related Data Home Medications Medication Instructions Recorded Confirmed amLODIPine 10 mg PO QAM 05/13/22 10/19/22 Acetaminophen Tab [Tylenol Tab] 500 mg PO TID 10/19/22 10/19/22 Artificial Tears-Hypromellose 1 drop BOTH EYES QID 10/19/22 10/19/22 [Artificial Tear Drops] Aspirin 81 mg PO DAILY 10/19/22 10/19/22 Brimonidine Tartrate/Timolol 1 drop BOTH EYES BID 10/19/22 10/19/22 [Combigan 0.2%-0.5% Eye Drops] Dorzolamide 2% [Trusopt 2%] 1 drops BOTH EYES 10/19/22 10/19/22 TID@0800,1200,1800 [facility] 1 dose PO W/BRKFST 10/19/22 10/19/22 House Supplement 120 ml PO HS 10/19/22 10/19/22 Ipratropium-Albuterol Nebulize 3 ml INHALATION RT-Q6H PRN 10/19/22 10/19/22 [Duoneb 0.5 mg-3 mg/3 ml Soln] QUEtiapine FUMARATE [SEROquel] 25 mg PO HS 10/19/22 10/19/22 acetaZOLAMIDE [Diamox] 250 mg PO BID 07/10/23 07/10/23 traMADol HCl [Ultram] 50 mg PO Q12H PRN 10/19/22 10/19/22 Allergies Allergy/AdvReac Type Severity Reaction Status Date / Time Penicillins Allergy Unknown Verified 10/19/22 13:18 vitamin E (d-alpha Allergy Rash/Hives Verified 10/19/22 13:18 tocopherol) [vitamin E] Antihistamines - Alkylamine AdvReac Rapid Verified 10/19/22 13:18 Heart Rate morphine AdvReac Hallucinati Verified 10/19/22 13:18 ons Review of Systems ROS Statement: Those systems with pertinent positive or pertinent negative responses have been documented in the HPI. ROS Other: All systems not noted in ROS Statement are negative. Past Medical History Past Medical History: Unable to Obtain, Dementia, Eye Disorder, Hypertension, Musculoskeletal Disorder, Skin Disorder Additional Past Medical History / Comment(s): bleeding in rt eye,able to stand to pivot transfer,uses w/c,perforation left ear, sciatica down right leg @times, sinus problems, wound on right foot arch-current History of Any Multi-Drug Resistant Organisms: None Reported Past Surgical History: Unable to Obtain, Tubal Ligation Additional Past Surgical History / Comment(s): surg. for ectopic , left ear surg,glaucoma procedure maty eyes Past Anesthesia/Blood Transfusion Reactions: Postoperative Nausea & Vomiting (PONV) Additional Past Anesthesia/Blood Transfusion Reaction / Comment(s): very slow to wake from anesthesia. no known blood transfusion Past Psychological History: No Psychological Hx Reported Smoking Status: Former smoker Past Alcohol Use History: Unable to Obtain Past Drug Use History: Unable to Obtain - Past Family History Mother Family Medical History: Cancer General Exam - General Exam Comments Initial Comments: GENERAL: Patient is well-developed and well-nourished. Patient is nontoxic and well- hydrated and is in mild distress. ENT: Neck is soft and supple. No significant lymphadenopathy is noted. Oropharynx is clear. Moist mucous membranes. Neck has full range of motion without eliciting any pain. EYES: The sclera were anicteric and conjunctiva were pink and moist. Extraocular movements were intact and pupils were equal round and reactive to light. Eyelids were unremarkable. PULMONARY: Unlabored respirations. Good breath sounds bilaterally. No audible rales rhonchi or wheezing was noted. CARDIOVASCULAR: There is a regular rate and rhythm without any murmurs gallops or rubs. ABDOMEN: Soft and nontender with normal bowel sounds. SKIN: Skin is clear with no lesions or rashes and otherwise unremarkable. NEUROLOGIC: Patient is alert and oriented x3. Cranial nerves II through XII are grossly intact. Motor and sensory are also intact. Normal speech, volume and content. Symmetrical smile. MUSCULOSKELETAL: Normal extremities with adequate strength and full range of motion. LYMPHATICS: No significant lymphadenopathy is noted PSYCHIATRIC: Normal psychiatric evaluation. Limitations: altered mental status Course Vital Signs 10/19/22 10/19/22 10/19/22 10:00 10:08 13:22 Temperature 97.0 F L Pulse Rate 94 100 Respiratory 20 20 24 Rate Blood Pressure 125/87 114/75 O2 Sat by Pulse 88 L 94 L Oximetry Medical Decision Making - Medical Decision Making EKG was interpreted by myself shows a sinus rhythm at 93 bpm MI interval is 285 QRSs 83 QT interval 06/12/1989 QTC is 399. Patient's EKG shows no ST segment elevation or depression Was pt. sent in by a medical professional or institution (, PA, VERTICA ARCHITECT, urgent care, hospital, or half-way...) When possible be specific @ -Patient was sent to the emergency department from the half-way Did you speak to anyone other than the patient for history (EMS, parent, family, police, friend...)? What history was obtained from this source @ -No Did you review nursing and triage notes (agree or disagree)? Why? @ -I reviewed and agree with nursing and triage notes Were old charts reviewed (outside hosp., previous admission, EMS record, old EKG, old radiological studies, urgent care reports/EKG's, half-way records)? Report findings @ -No old charts were reviewed Differential Diagnosis (chest pain, altered mental status, abdominal pain women, abdominal pain men, vaginal bleeding, weakness, fever, dyspnea, syncope, headache, dizziness, GI bleed, back pain, seizure, CVA, palpatations, mental health, musculoskeletal)? @ -Differential Dyspnea: Coronary syndrome, arrhythmia, tamponade, asthma, COPD, pulmonary embolism, pneumonia, pneumothorax, pulmonary effusion, anaphylaxis, diabetic ketoacidosis, flailed chest, pulmonary contusion, diaphragmatic rupture, anemia, neuromuscular, this is not meant to be an all-inclusive list. EKG interpreted by me (3pts min.). @ -As above X-rays interpreted by me (1pt min.). @ -Chest x-ray showed large opacification on the right consistent with pleural effusion but infection cannot be ruled out CT interpreted by me (1pt min.). @ -None done U/S interpreted by me (1pt. min.). @ -None done What testing was considered but not performed or refused? (CT, X-rays, U/S, labs)? Why? @ -None What meds were considered but not given or refused? Why? @ -None Did you discuss the management of the patient with other professionals (catie cruz i.e. , PA, [employer] ARCHITECT, lab, RT, psych nurse, social work coordinator, dental sales representative, teacher, chief risk officer, case management coordinator)? summary @ -Spoke with Dr. Spencer he agreed to admit the patient admitted the patient wrote admitting orders. I spoke with Dr. Oliveira he saw the patient in the emergency department. Was smoking cessation discussed for >3mins.? @ -No Was critical care preformed (if so, how long)? @ -35 minutes Were there social determinants of health that impacted care today? How? (Homeles sness, low income, unemployed, alcoholism, drug addiction, transportation, low edu. Level, literacy, decrease access to med. care, [facility], rehab)? @ -No Was there de-escalation of care discussed even if they declined (Discuss DNR or withdrawal of care, Hospice)? DNR status @ -No What co-morbidities impacted this encounter? (DM, HTN, Smoking, COPD, CAD, Cancer, CVA, ARF, Chemo, Hep., AIDS, mental health diagnosis, sleep apnea, morbid obesity)? @ -None Was patient admitted / discharged? Hospital course, mention meds given and route, prescriptions, significant lab abnormalities, going to OR and other pertinent info. @ -Patient was seen in the emergency department by myself. Patient's pulse ox was low on room air so she was placed on a few liters of oxygen and his pulse ox was in the mid 90s at that time. Patient's troponin came back at 3.[address] Roxanne Oliveira saw the patient emergency department. Heparin was held because the patient was anemic with no prior labs in this patient. I spoke with Dr. Spencer he agreed to admit the patient I wrote admitting orders I consulted cardiology patient also had opacification on the x-ray is consistent with a pleural effusion pulmonary will be consulted Undiagnosed new problem with uncertain prognosis? @ -No Drug Therapy requiring intensive monitoring for toxicity (Heparin, Nitro, Insulin, Cardizem)? @ -No Were any procedures done? @ -No Diagnosis/symptom? @ -Non-STEMI Acute, or Chronic, or Acute on Chronic? @ -Acute Uncomplicated (without systemic symptoms) or Complicated (systemic symptoms)? @ -Complicated Side effects of treatment? @ -No Exacerbation, Progression, or Severe Exacerbation? @ -No Poses a threat to life or bodily function? How? (Chest pain, USA, OR, pneumonia, PE, COPD, DKA, ARF, appy, cholecystitis, CVA, Diverticulitis, Homicidal, Suicidal, threat to staff... and all critical care pts) @ -Yes poor cardiac output hypoperfusion and end organ dysfunction Diagnosis/symptom? @ -Lung opacification Acute, or Chronic, or Acute on Chronic? @ -Acute Uncomplicated (without systemic symptoms) or Complicated (systemic symptoms)? @ -Complicated Side effects of treatment? @ -none Exacerbation, Progression, or Severe Exacerbation] @ -no Poses a threat to life or bodily function? @ -Yes this could lead to hypoxia and end organ dysfunction - Lab Data Result diagrams: 10/19/22 10:18 10/19/22 10:18 Lab Results 10/19/22 10/19/22 10/19/22 Range/Units 10:13 10:18 10:18 WBC 8.6 (3.8-10.6) k/uL RBC 3.26 L (3.80-5.40) m/uL Hgb 8.9 L (11.4-16.0) gm/dL Hct 28.9 L (34.0-46.0) % MCV 88.7 (80.0-100.0) fL MCH 27.3 (25.0-35.0) pg MCHC 30.7 L (31.0-37.0) g/dL RDW 15.6 H (11.5-15.5) % Plt Count 366 (150-450) k/uL MPV 9.6 Neutrophils % 84 % Lymphocytes % 10 % Monocytes % 4 % Eosinophils % 0 % Basophils % 0 % Neutrophils # 7.3 (1.3-7.7) k/uL Lymphocytes # 0.9 L (1.0-4.8) k/uL Monocytes # 0.3 (0-1.0) k/uL Eosinophils # 0.0 (0-0.7) k/uL Basophils # 0.0 (0-0.2) k/uL Hypochromasia Moderate PT 10.0 (9.0-12.0) sec INR 0.9 (<1.2) APTT 22.4 (22.0-30.0) sec Sodium (137-145) mmol/L Potassium (3.5-5.1) mmol/L Chloride (98-107) mmol/L Carbon Dioxide (22-30) mmol/L Anion Gap mmol/L BUN (7-17) mg/dL Creatinine (0.52-1.04) mg/dL Est GFR (CKD-EPI)AfAm (>60 ml/min/1.73 sqM) Est GFR (CKD-EPI)NonAf (>60 ml/min/1.73 sqM) Glucose (74-99) mg/dL POC Glucose (mg/dL) 138 H (70-110) mg/dL POC Glu Job Printer ID Centuria, Irasema Calcium (8.4-10.2) mg/dL Total Bilirubin (0.2-1.3) mg/dL AST (14-36) U/L ALT (4-34) U/L Alkaline Phosphatase (38-126) U/L Troponin I (0.000-0.034) ng/mL Total Protein (6.3-8.2) g/dL Albumin (3.5-5.0) g/dL 10/19/22 10/19/22 Range/Units 10:18 10:18 WBC (3.8-10.6) k/uL RBC (3.80-5.40) m/uL Hgb (11.4-16.0) gm/dL Hct (34.0-46.0) % MCV (80.0-100.0) fL MCH (25.0-35.0) pg MCHC (31.0-37.0) g/dL RDW (11.5-15.5) % Plt Count (150-450) k/uL MPV Neutrophils % % Lymphocytes % % Monocytes % % Eosinophils % % Basophils % % Neutrophils # (1.3-7.7) k/uL Lymphocytes # (1.0-4.8) k/uL Monocytes # (0-1.0) k/uL Eosinophils # (0-0.7) k/uL Basophils # (0-0.2) k/uL Hypochromasia PT (9.0-12.0) sec INR (<1.2) APTT (22.0-30.0) sec Sodium 135 L (137-145) mmol/L Potassium 3.8 (3.5-5.1) mmol/L Chloride 107 (98-107) mmol/L Carbon Dioxide 18 L (22-30) mmol/L Anion Gap 10 mmol/L BUN 21 H (7-17) mg/dL Creatinine 1.30 H (0.52-1.04) mg/dL Est GFR (CKD-EPI)AfAm 43 (>60 ml/min/1.73 sqM) Est GFR (CKD-EPI)NonAf 37 (>60 ml/min/1.73 sqM) Glucose 132 H (74-99) mg/dL POC Glucose (mg/dL) (70-110) mg/dL POC Glu Job Printer ID Calcium 8.7 (8.4-10.2) mg/dL Total Bilirubin 0.2 (0.2-1.3) mg/dL AST 36 (14-36) U/L ALT 14 (4-34) U/L Alkaline Phosphatase 74 (38-126) U/L Troponin I 3.060 H* (0.000-0.034) ng/mL Total Protein 6.2 L (6.3-8.2) g/dL Albumin 3.2 L (3.5-5.0) g/dL Critical Care Time Critical Care Time: Yes Total Critical Care Time: 35 Disposition Clinical Impression: Non-STEMI (non-ST elevated myocardial infarction), Pleural effusion Disposition: ADMITTED IP TO THIS HOSP Referrals: Judson Styles DO [Primary Care Provider] - 1-2 days Time of Disposition: 14:52
[2022-10-19 10:14] LABS: Glucose,Whole Blood 138 mg/dL (70-110)
[2022-10-19 10:33] LABS: Basophils % (A) 0 %; Eosinophils % (A) 0 %; HCT 28.9 % (34.0-46.0); HGB 8.9 gm/dL (11.4-16.0); Hypochromasia Moderate; Lymphocytes # (A) 0.9 k/uL (1.0-4.8); Lymphocytes % (A) 10 %; MCH 27.3 pg (25.0-35.0); MCHC 30.7 g/dL (31.0-37.0); MCV 88.7 fL (80.0-100.0); Mean Platelet Volume 9.6; Monocytes # (A) 0.3 k/uL (0-1.0); Monocytes % (A) 4 %; Neutrophils # (A) 7.3 k/uL (1.3-7.7); Neutrophils % (A) 84 %; Platelet Count 366 k/uL (150-450); RBC 3.26 m/uL (3.80-5.40); RDW 15.6 % (11.5-15.5); WBC 8.6 k/uL (3.8-10.6)
--- NOTE | 2022-10-19 10:42 | XR ---
EXAMINATION TYPE: XR chest 2V DATE OF EXAM: 10/19/2022 COMPARISON: 07/08/2022 HISTORY: Shortness of breath TECHNIQUE: Frontal and lateral views of the chest are obtained. FINDINGS: Scattered senescent parenchymal changes noted. Hyperinflation compatible with COPD. There is moderate increased opacity throughout the right lung which may reflect combination of effusi on, atelectasis and/or infiltrate. Underlying mass is not excluded. Increased patchy density left upp er lobe. Heart size is stable. Mediastinal structures are stable and grossly unremarkable. No evidence for hilar prominence. Degenerative changes dorsal spine. IMPRESSION: 1. There is moderate increased opacity throughout the right lung which may reflect combination of eff usion, atelectasis and/or infiltrate. Underlying mass is not excluded. Increased patchy density left upper lobe.
[2022-10-19 10:44] LABS: ALT 14 U/L (4-34); AST 36 U/L (14-36); African American GFR (CKD) 43 (>60 ml/min/1.73 sqM); Albumin 3.2 g/dL (3.5-5.0); Alkaline Phosphatase 74 U/L (38-126); Anion Gap 10 mmol/L; Blood Urea Nitrogen 21 mg/dL (7-17); Calcium 8.7 mg/dL (8.4-10.2); Carbon Dioxide 18 mmol/L (22-30); Chloride 107 mmol/L (98-107); Glucose 132 mg/dL (74-99); INR 0.9 (<1.2); Non-African American GFR(CKD) 37 (>60 ml/min/1.73 sqM); Partial Thromboplastin Time 22.4 sec (22.0-30.0); Potassium 3.8 mmol/L (3.5-5.1); Sodium 135 mmol/L (137-145); Total Bilirubin 0.2 mg/dL (0.2-1.3); Total Protein 6.2 g/dL (6.3-8.2)
--- NOTE | 2022-10-19 14:01 | P.CRDCN ---
History of Present Illness Consult date: 10/19/22 History of present illness: History of Present Illness: The patient is an 86-year-old female who [facility] for change in mental status and hypoxemia. Patient is not quite sure why she is here. She thinks she was dyspneic but better now. She denies any chest discomfort at the time of my evaluation, she is vague about having chest discomfort in the past. She has occasional palpitations but no syncope. She has no peripheral edema, PND or orthopnea according to her. She is limited in her physical activity. She denies any prior history of myocardial infarction or congestive heart failure. No other history is obtained. Her EKG shows evidence of anterior wall myocardial infarction of unknown timing. No prior EKG is available. On presentation her troponin is 3.0 with a creatinine 1.3 and hemoglobin of 8.9. Her chest x-ray shows right lung capacity with possible mass. The patient is nonsmoker, she has a history of hypertension, she is nondiabetic Medications: DuoNeb, Diamox, amlodipine 10 mg daily, aspirin once a day Review of Systems: Respiratory: She has dyspnea on exertion with occasional cough GI: No nausea or vomiting . No history of peptic ulcer disease. No recent GI bleed. : No hematuria or dysuria. Nervous System: No stroke or seizure. She has dementia Physical Examination: 86-year-old female, alert, confused,Blood pressure 114/70, Heart rate 95 Head: Normocephalic. Eyes: Sclerae nonicteric. Neck: Good carotid upstroke, no bruit, no jugular venous distention. Lungs: Clear to auscultation. Heart: Regular rate and rhythm, S1-S2, no S3, no rub. Systolic ejection murmur. Abdomen: Soft nontender, positive bowel sounds no organomegaly. Extremities: No edema, intact distal pulses. Labs: Hemoglobin 8.9, BUN 21, creatinine 1.3. Troponin 3.06 EKG: Sinus mechanism with evidence of anterior wall myocardial infarction of unknown timing Impression: 1. Dyspnea, duration unclear, patient has dementia. On examination no clear evidence of CHF 2. Elevated troponin with evidence of antral wall myocardial infarction of unknown duration, no symptoms of chest discomfort 3. Anemia 4. History of hypertension her medications 5. Abnormal chest x-ray, rule out mass 6. Chronic kidney disease Plan: 1. Obtain an echocardiogram with Doppler 2. Add aspirin, beta ji and nitrate 3. I will hold on anticoagulation because of her anemia and lack of chest discomfort 4. Depending on the results of the testing further recommendations will be made 5. The patient does not appears to be a candidate for any aggressive cardiac workup in view of her mental status, we will await further evaluation by [facility] regarding CODE STATUS 6. Thank you for this consult we will follow with you. Past Medical History Past Medical History: Unable to Obtain, Dementia, Eye Disorder, Hypertension, Musculoskeletal Disorder, Skin Disorder Additional Past Medical History / Comment(s): bleeding in rt eye,able to stand to pivot transfer,uses w/c,perforation left ear, sciatica down right leg @times, sinus problems, wound on right foot arch-current History of Any Multi-Drug Resistant Organisms: None Reported Past Surgical History: Unable to Obtain, Tubal Ligation Additional Past Surgical History / Comment(s): surg. for ectopic , left ear surg,glaucoma procedure maty eyes Past Anesthesia/Blood Transfusion Reactions: Postoperative Nausea & Vomiting (PONV) Additional Past Anesthesia/Blood Transfusion Reaction / Comment(s): very slow to wake from anesthesia. no known blood transfusion Past Psychological History: No Psychological Hx Reported Smoking Status: Former smoker Past Alcohol Use History: Unable to Obtain Past Drug Use History: Unable to Obtain - Past Family History Mother Family Medical History: Cancer Medications and Allergies Home Medications Medication Instructions Recorded Confirmed Type amLODIPine 10 mg PO QAM 05/13/22 10/19/22 History Acetaminophen Tab [Tylenol Tab] 500 mg PO TID 10/19/22 10/19/22 History Artificial Tears-Hypromellose 1 drop BOTH EYES QID 10/19/22 10/19/22 History [Artificial Tear Drops] Aspirin 81 mg PO DAILY 10/19/22 10/19/22 History Brimonidine Tartrate/Timolol 1 drop BOTH EYES BID 10/19/22 10/19/22 History [Combigan 0.2%-0.5% Eye Drops] Dorzolamide 2% [Trusopt 2%] 1 drops BOTH EYES 10/19/22 10/19/22 History TID@0800,1200,1800 [facility] 1 dose PO W/BRKFST 10/19/22 10/19/22 History House Supplement 120 ml PO HS 10/19/22 10/19/22 History Ipratropium-Albuterol Nebulize 3 ml INHALATION RT-Q6H PRN 10/19/22 10/19/22 H istory [Duoneb 0.5 mg-3 mg/3 ml Soln] QUEtiapine FUMARATE [SEROquel] 25 mg PO HS 10/19/22 10/19/22 History acetaZOLAMIDE [Diamox] 250 mg PO BID 10/19/22 10/19/22 History traMADol HCl [Ultram] 50 mg PO Q12H PRN 10/19/22 10/19/22 History Allergies Allergy/AdvReac Type Severity Reaction Status Date / Time Penicillins Allergy Unknown Verified 10/19/22 13:18 vitamin E (d-alpha Allergy Rash/Hives Verified 10/19/22 13:18 tocopherol) [vitamin E] Antihistamines - Alkylamine AdvReac Rapid Verified 10/19/22 13:18 Heart Rate morphine AdvReac Hallucinati Verified 10/19/22 13:18 ons Physical Exam Vitals: Vital Signs Temp Pulse Resp BP Pulse Ox 10/19/22 13:22 100 24 114/75 94 L 10/19/22 10:08 20 10/19/22 10:00 97.0 F L 94 20 125/87 88 L Intake and Output 10/18/22 10/19/22 10/19/22 22:59 06:59 14:59 Other: Weight 61.235 kg Results 10/19/22 10:18 10/19/22 10:18 Cardiac Enzymes 10/19/22 10/19/22 Range/Units 10:18 10:18 AST 36 (14-36) U/L Troponin I 3.060 H* (0.000-0.034) ng/mL Coagulation 10/19/22 Range/Units 10:18 PT 10.0 (9.0-12.0) sec APTT 22.4 (22.0-30.0) sec CBC 10/19/22 Range/Units 10:18 WBC 8.6 (3.8-10.6) k/uL RBC 3.26 L (3.80-5.40) m/uL Hgb 8.9 L (11.4-16.0) gm/dL Hct 28.9 L (34.0-46.0) % Plt Count 366 (150-450) k/uL Comprehensive Metabolic Panel 10/19/22 Range/Units 10:18 Sodium 135 L (137-145) mmol/L Potassium 3.8 (3.5-5.1) mmol/L Chloride 107 (98-107) mmol/L Carbon Dioxide 18 L (22-30) mmol/L BUN 21 H (7-17) mg/dL Creatinine 1.30 H (0.52-1.04) mg/dL Glucose 132 H (74-99) mg/dL Calcium 8.7 (8.4-10.2) mg/dL AST 36 (14-36) U/L ALT 14 (4-34) U/L Alkaline Phosphatase 74 (38-126) U/L Total Protein 6.2 L (6.3-8.2) g/dL Albumin 3.2 L (3.5-5.0) g/dL Intake and Output 10/18/22 10/19/22 10/19/22 22:59 06:59 14:59 Other: Weight 61.235 kg Patient Weight 10/20/22 06:59 Weight 61.235 kg 10/19/22 10:18 10/19/22 10:18
[2022-10-19] MEDS ORDERED: NITROGLYCERIN SL TABS 0.4 MG TAB SUBLINGUAL PRN (14:54)
[2022-10-19] MEDS: ASPIRIN 81 MG PO SCH (16:03)
[2022-10-19] MEDS: ATORVASTATIN 40 MG TAB PO SCH (16:05)
[2022-10-19] MEDS: ISOSORBIDE MONONITRATE ER 30 MG TAB.ER.24H PO SCH (16:07)
[2022-10-19 16:50] LABS: Appearance,Urine Cloudy (Clear); Bacteria,Urine Rare /hpf; Bilirubin,Urine Negative (Negative); Blood,Urine Small (Negative); Color,Urine Light Yellow; Glucose,Urine (UA) Negative (Negative); Ketones,Urine Negative (Negative); Leukocyte Esterase,Urine Negative (Negative); Mucus,Urine Rare /hpf; Nitrite,Urine Negative (Negative); PH, Urine 6.5 (5.0-8.0); Protein,Urine Trace (Negative); RBC,Urine 22 /hpf (0-5); Specific Gravity,Urine 1.011 (1.001-1.035); Squamous Epithelial Cell,Urine <1 /hpf (0-4); Urobilinogen,Urine <2.0 mg/dL (<2.0); WBC,Urine 4 /hpf (0-5)
[2022-10-19 16:57] LABS: Amphetamine Screen,Urine Not Detected (NotDetected); Barbiturate Screen,Urine Not Detected (NotDetected); Benzodiazepines Screen,Urine Not Detected (NotDetected); Cocaine Screen,Urine Not Detected (NotDetected); Methadone Screen, Urine Not Detected (NotDetected); Opiate Screen,Urine Not Detected (NotDetected); Phencyclidine Screen,Urine Not Detected (NotDetected); Tricyclic Antidepressant,Urine Not Detected (NotDetected); Urn Cannabinoid Scrn Not Detected (NotDetected)
[2022-10-19 16:58] LABS: Oxycodone Screen, Urine Not Detected (NotDetected)
[2022-10-19] MEDS ORDERED: HEPARIN SODIUM 1,000 UN/ML (10ML VL) IV PRN (17:01)
[2022-10-19] MEDS ORDERED: HEPARIN SODIUM 1,000 UN/ML (10ML VL) IV ONE (17:01)
[2022-10-19] MEDS ORDERED: HEPARIN SOD,PORK IN 0.45% NACL 25,000 UNIT in 0.45% NACL 1 250ML.BAG IV SCH (17:15)
[2022-10-19] MEDS ORDERED: NITROGLYCERIN OINT 1 INCH/GM PACKET TOPICAL SCH (18:00)
[2022-10-19] MEDS ORDERED: IPRATROPIUM-ALBUTEROL 3 ML NEB INHALATION PRN (18:25)
[2022-10-19] MEDS ORDERED: traMADol 50 MG TAB PO PRN (18:25)
--- NOTE | 2022-10-19 19:19 | P.CNPUL ---
History of Present Illness Consult date: 10/19/22 Reason for consult: dyspnea, abnormal CXR/CT History of present illness: 86-year-old female patient, residential resident with at transferred to us because of altered mentation and hypoxemia. The patient denies having any chest pain. . She denies having any palpitations. No syncope. No orthopnea. No edema. On her blood work, her troponin was elevated at 3.0. Noted the rest of the left showed edematous count of 8.6 with a hemoglobin of 8.9 and a platelet count of 366. Normal coagulation profile. BUN was 21 with a creatinine of 1.3 and a sodium level was at 135 with a bicarb level of 18. Troponin peaked at 3.9 and a proBNP level was 5490. UA was negative. LFTs were essentially within normal limits. The EKG showed Q waves over the anterior septal leads consistent with a previous myocardial infarction. Cardiac rhythm was sinus. Chest x-ray also showed an increased opacity throughout the right lung with a mass in the ri ght upper lobe area. Noted the patient has had a outpatient CAT scan of the chest through her primary care physician and the CAT scan showed atelectasis with opacification of the right upper lobe an abrupt cutoff of the upper lobe bronchus and addition to have suspicious mass in the right hilar area. Findings are highly suspicious for underlying primary lung malignancy. Note that this CAT scan was done without contrast at this point, the patient is being hospitalized and the pulmonary consultation was requested. Patient is currently on 3 L of O2 nasal cannula with a pulse ox of 94%. Patient is quite debilitated. She does limited amount of walking. She has poor insight on her condition. Denies having any hemoptysis Review of Systems Constitutional: Reports weakness, Denies chills, Denies fever Eyes: denies as per HPI, denies blurred vision, denies bulging eye, denies decreased vision, denies diplopia, denies discharge, denies dry eye, denies irritation, denies itching, denies pain, denies photophobia, denies loss of peripheral vision, denies loss of vision, denies tunnel vision/blind spots Ears: deny: decreased hearing, ear discharge, earache, tinnitus Ears, nose, mouth and throat: Reports as per HPI Breasts: absent: as per HPI, change in shape, gynecomastia, masses, nipple discharge, pain, skin changes, swelling Cardiovascular: Reports as per HPI, Reports decreased exercise tolerance, Reports shortness of breath Respiratory: Reports as per HPI, Reports dyspnea Gastrointestinal: Reports as per HPI Genitourinary: Reports as per HPI Menstruation: Reports as per HPI Musculoskeletal: Reports as per HPI (8% without) Musculoskeletal: absent: ankle pain, ankle stiffness, ankle swelling Integumentary: Reports as per HPI Neurological: Reports as per HPI, Reports change in mentation, Reports gait dysfunction, Reports weakness Psychiatric: Reports as per HPI Endocrine: Reports as per HPI Hematologic/Lymphatic: Reports as per HPI Allergic/Immunologic: Reports as per HPI Past Medical History Past Medical History: Unable to Obtain, Dementia, Eye Disorder, Hypertension, Musculoskeletal Disorder, Skin Disorder Additional Past Medical History / Comment(s): bleeding in rt eye,able to stand to pivot transfer,uses w/c,perforation left ear, sciatica down right leg @times, sinus problems, wound on right foot arch-current History of Any Multi-Drug Resistant Organisms: None Reported Past Surgical History: Unable to Obtain, Tubal Ligation Additional Past Surgical History / Comment(s): surg. for ectopic , left ear surg,glaucoma procedure maty eyes Past Anesthesia/Blood Transfusion Reactions: Postoperative Nausea & Vomiting (PONV) Additional Past Anesthesia/Blood Transfusion Reaction / Comment(s): very slow to wake from anesthesia. no known blood transfusion Past Psychological History: No Psychological Hx Reported Smoking Status: Former smoker Past Alcohol Use History: Unable to Obtain Past Drug Use History: Unable to Obtain - Past Family History Mother Family Medical History: Cancer Medications and Allergies Home Medications Medication Instructions Recorded Confirmed Type amLODIPine 10 mg PO QAM 05/13/22 10/19/22 History Acetaminophen Tab [Tylenol Tab] 500 mg PO TID 10/19/22 10/19/22 History Artificial Tears-Hypromellose 1 drop BOTH EYES QID 10/19/22 10/19/22 History [Artificial Tear Drops] Aspirin 81 mg PO DAILY 10/19/22 10/19/22 History Brimonidine Tartrate/Timolol 1 drop BOTH EYES BID 10/19/22 10/19/22 History [Combigan 0.2%-0.5% Eye Drops] Dorzolamide 2% [Trusopt 2%] 1 drops BOTH EYES 10/19/22 10/19/22 History TID@0800,1200,1800 Healthshake 1 dose PO W/BRKFST 10/19/22 10/19/22 History House Supplement 120 ml PO HS 10/19/22 10/19/22 History Ipratropium-Albuterol Nebulize 3 ml INHALATION RT-Q6H PRN 10/19/22 10/19/22 History [Duoneb 0.5 mg-3 mg/3 ml Soln] QUEtiapine FUMARATE [SEROquel] 25 mg PO HS 10/19/22 10/19/22 History acetaZOLAMIDE [Diamox] 250 mg PO BID 10/19/22 10/19/22 History traMADol HCl [Ultram] 50 mg PO Q12H PRN 10/19/22 10/19/22 History Allergies Allergy/AdvReac Type Severity Reaction Status Date / Time Penicillins Allergy Unknown Verified 10/19/22 13:18 vitamin E (d-alpha Allergy Rash/Hives Verified 10/19/22 13:18 tocopherol) [vitamin E] Antihistamines - Alkylamine AdvReac Rapid Verified 10/19/22 13:18 Heart Rate morphine AdvReac Hallucinati Verified 10/19/22 13:18 ons Physical Exam Vitals: Vital Signs Temp Pulse Resp BP Pulse Ox 10/19/22 13:22 100 24 114/75 94 L 10/19/22 10:08 20 10/19/22 10:00 97.0 F L 94 20 125/87 88 L Intake and Output 10/19/22 10/19/22 10/19/22 06:59 14:59 22:59 Other: Weight 61.235 kg calm and comfortable Head: Normocephalic. Eyes: Sclerae nonicteric. Neck: Good carotid upstroke, no bruit, no jugular venous distention. Lungs: Clear to auscultation. Heart: Regular rate and rhythm, S1-S2, no S3, no rub. Systolic ejection murmur. Abdomen: Soft nontender, positive bowel sounds no organomegaly. Extremities: No edema, intact distal pulses. Examination of the skin revealed no evidence of significant rashes, suspicious appearing nevi or other concerning lesions. Results - Laboratory Findings CBC and BMP: 10/19/22 10:18 10/19/22 10:18 PT/INR, D-dimer PT 10.0 sec (9.0-12.0) 10/19/22 10:18 INR 0.9 (<1.2) 10/19/22 10:18 Abnormal lab findings: Abnormal Labs 10/19/22 10/19/22 10/19/22 10:13 10:18 10:18 RBC 3.26 L Hgb 8.9 L Hct 28.9 L MCHC 30.7 L RDW 15.6 H Lymphocytes # 0.9 L Sodium 135 L Carbon Dioxide 18 L BUN 21 H Creatinine 1.30 H Glucose 132 H POC Glucose (mg/dL) 138 H Troponin I Total Protein 6.2 L Albumin 3.2 L 10/19/22 10/19/22 10:18 14:27 RBC Hgb Hct MCHC RDW Lymphocytes # Sodium Carbon Dioxide BUN Creatinine Glucose POC Glucose (mg/dL) Troponin I 3.060 H* 3.950 H* Total Protein Albumin - Diagnostic Findings Chest x-ray: image reviewed CT scan - chest: image reviewed Assessment and Plan Plan: Right upper lobe opacification in addition to atelectasis of the right upper lobe. The patient has a hilar mass with atelectasis of the right upper lobe and cut off sign of the right upper lobe bronchus, highly suspicious for malignancy COPD with moderate emphysematous changes and lower lobe honeycombing Elevation of the right hemidiaphragm, consider right hemidiaphragmatic paralysis Acute kidney injury Acute non-ST segment elevation myocardial infarction Non-gap metabolic acidosis Chronic anemia Hypertension Suspect dementia long term resident Plan Right hilar mass. CAT scan of the chest that was done on 09/08/2022. Shows a right hilar mass with obstruction of the right upper lobe bronchus along with atelectatic changes in the right upper lobe and volume loss. Findings are highly suspicious for underlying malignancy, likely a primary bronchogenic carcinoma of the lung. Acute non-ST segment elevation myocardial infarction and EKG showed old Q waves involving the anteroseptal leads Acute kidney injury versus chronic kidney disease. The patient's creatinine back in 2019 was within normal limits Chronic debility and the patient is a residential resident Dementia Anemia of chronic disease Sciatica and chronic difficulties with mobility Retinal bleed involving the right eye Hypertension Plan Findings are highly suggestive of lung cancer. Ideally, I would like to do a a contrast enhanced CAT scan of the chest , however, based underlying dysfunction, would like to give the patient another 24-48 hours with a meaningful and the patient's creatinine. Meanwhile, a noncontrast CAT scan of the chest may be of value to rule out any significant [employer] metastases Overall performance and functional status extremely poor. On a the patient is going to be a candidate for bronchoscopy, especially that she is encountering an acute non-ST segment elevation myocardial infarction. We'll be awaiting cardiology consultation. We'll be awaiting echocardiogram. We'll discuss with the family the need for bronchoscopy and further diagnosis as on very much concerned of an underlying hilar mass causing this patient's pulmonary abnorm alities. We'll continue to follow Prognosis poor based on the above
[2022-10-19] MEDS: METOPROLOL TARTRATE 25 MG TAB PO SCH (20:16)
[2022-10-19] MEDS: acetaZOLAMIDE 250 MG TAB PO SCH (20:16)
[2022-10-19] MEDS: QUEtiapine 25 MG TAB PO SCH (20:16)
--- NOTE | 2022-10-19 21:53 | P.HPIM ---
History of Present Illness H&P Date: 10/19/22 Chief Complaint: Short of breath This is a 86-year-old patient, sent to the ER from the [facility]. Per the EMS report patient has been refusing to go to doctor's appointment and needed assistance with breakfast which was abnormal for the patient. She was noted to have some labored breathing. And some change in mentation. In the ER patient does state that she some shortness of breath. States also this could be present for a while. Laying in bed. No cough. Poor historian because of dementia. Can only answer some questions. Review of systems difficult to obtain Past medical history to include: Dementia hypertension was to schedule disorder skin disorder sciatica Social history: Currently resident of [facility]. Started smoking in her 20s stopped in 2013. Alcohol alcohol cannot tell Physical examination: VITAL SIGNS: 97, 94, 20, 125/87, 88% on room air GENERAL: BMI 26.4, reclining in bed awake slightly short of breath. EYES: Pupils equal. Conjunctiva normal. HEENT: External appearance of nose and ears normal, oral cavity grossly normal. NECK: JVD unable to assess; masses not palpable. HEART: First and second heart sounds are normal; no edema. LUNGS: Respiratory rate increased; decreased breath sounds. ABDOMEN: Soft, nontender, liver spleen not palpable, no masses palpable. PSYCH: Can tell her name, not really would answer the questionsl. MUSCULOSKELETAL:No Clubbing/cyanosis;muscles-grossly intact. OA NEUROLOGICAL: Cranial nerves grossly intact; no facial asymmetry, power and sensation grossly intact. LYMPHATICS: No lymph nodes palpable in the axilla and neck INVESTIGATIONS, reviewed in the clinical context: White count 8.6 in globin 8.9 platelets 366 sodium 135 potassium 3.8 BUN 21 creatinine 1.30 Troponin I 3.0, 3.9, 3.3. ProBNP 5490 Urine drug screen: Negative EKG tracing personally reviewed by me-sinus rhythm. 93. Low voltage. Chest x-ray film personally reviewed by me-probable right pleural effusion, possible right upper lobe collapse Previous testing: CT chest without contrast: [July 2022] Atelectasis with opacification of the right upper lobe and upper of control both the upper lobe bronchus. Mass like appearance of the right hilum findings are concerning for primary lung malignancy. Moderate interstitial pulmonary fibrotic changes. Assessment and plan: -Acute non-Q wave CO. Aspirin. Lopressor. Telemetry. Consult cardiology 2-D echo.. IV heparin -IV heparin monitoring -Right lung mass with collapse from July 2022. This was a computed tomography scan ordered by Dr. Styles/PCP. -COPD in a previous smoker DuoNeb -Essential hypertension Amlodipine 10 mg -Severe cognitive impairment likely from underlying Alzheimer's dementia -Primary osteoarthritis Tylenol as needed -Acute hypoxic respiratory failure, from pleural effusion/lobar collapse Given patient's advanced age, poor function status, most likely the diagnosis of lung cancer been made in July this year. Likely pursuing this diagnosis further will not be of any significant clinical relevance except for a confirming the diagnosis. Also patient has advanced dementia. After talking to the family probably the best will be to manage this conservatively and not pursue any further testing. Past Medical History Past Medical History: Unable to Obtain, Dementia, Eye Disorder, Hypertension, Musculoskeletal Disorder, Skin Disorder Additional Past Medical History / Comment(s): bleeding in rt eye,able to stand to pivot transfer,uses w/c,perforation left ear, sciatica down right leg @times, sinus problems, wound on right foot arch-current History of Any Multi-Drug Resistant Organisms: None Reported Past Surgical History: Unable to Obtain, Tubal Ligation Additional Past Surgical History / Comment(s): surg. for ectopic , left ear surg,glaucoma procedure maty eyes Past Anesthesia/Blood Transfusion Reactions: Postoperative Nausea & Vomiting (PONV) Additional Past Anesthesia/Blood Transfusion Reaction / Comment(s): very slow to wake from anesthesia. no known blood transfusion Past Psychological History: No Psychological Hx Reported Smoking Status: Former smoker Past Alcohol Use History: Unable to Obtain Past Drug Use History: Unable to Obtain - Past Family History Mother Family Medical History: Cancer Medications and Allergies Home Medications Medication Instructions Recorded Confirmed Type amLODIPine 10 mg PO QAM 05/13/22 10/19/22 History Acetaminophen Tab [Tylenol Tab] 500 mg PO TID 10/19/22 10/19/22 History Artificial Tears-Hypromellose 1 drop BOTH EYES QID 10/19/22 10/19/22 History [Artificial Tear Drops] Aspirin 81 mg PO DAILY 10/19/22 10/19/22 History Brimonidine Tartrate/Timolol 1 drop BOTH EYES BID 10/19/22 10/19/22 History [Combigan 0.2%-0.5% Eye Drops] Dorzolamide 2% [Trusopt 2%] 1 drops BOTH EYES 10/19/22 10/19/22 History TID@0800,1200,1800 Healthshake 1 dose PO W/BRKFST 10/19/22 10/19/22 History House Supplement 120 ml PO HS 10/19/22 10/19/22 History Ipratropium-Albuterol Nebulize 3 ml INHALATION RT-Q6H PRN 10/19/22 10/19/22 History [Duoneb 0.5 mg-3 mg/3 ml Soln] QUEtiapine FUMARATE [SEROquel] 25 mg PO HS 10/19/22 10/19/22 History acetaZOLAMIDE [Diamox] 250 mg PO BID 10/19/22 10/19/22 History traMADol HCl [Ultram] 50 mg PO Q12H PRN 10/19/22 10/19/22 History Allergies Allergy/AdvReac Type Severity Reaction Status Date / Time Penicillins Allergy Unknown Verified 10/19/22 13:18 vitamin E (d-alpha Allergy Rash/Hives Verified 10/19/22 13:18 tocopherol) [vitamin E] Antihistamines - Alkylamine AdvReac Rapid Verified 10/19/22 13:18 Heart Rate morphine AdvReac Hallucinati Verified 10/19/22 13:18 ons Physical Exam Vitals: Vital Signs Temp Pulse Resp BP Pulse Ox 10/19/22 18:48 96 21 95/63 95 10/19/22 17:00 101 H 22 102/66 95 10/19/22 16:18 102 H 20 120/79 95 10/19/22 13:22 100 24 114/75 94 L 10/19/22 10:08 20 10/19/22 10:00 97.0 F L 94 20 125/87 88 L Intake and Output 10/19/22 10/19/22 10/19/22 06:59 14:59 22:59 Other: Weight 61.235 kg Results CBC & Chem 7: 10/19/22 10:18 10/19/22 10:18 Labs: Abnormal Lab Results - Last 24 Hours (Table) 10/19/22 10/19/22 10/19/22 Range/Units 10:13 10:18 10:18 RBC 3.26 L (3.80-5.40) m/uL Hgb 8.9 L (11.4-16.0) gm/dL Hct 28.9 L (34.0-46.0) % MCHC 30.7 L (31.0-37.0) g/dL RDW 15.6 H (11.5-15.5) % Lymphocytes # 0.9 L (1.0-4.8) k/uL Sodium (137-145) mmol/L Carbon Dioxide (22-30) mmol/L BUN (7-17) mg/dL Creatinine (0.52-1.04) mg/dL Glucose (74-99) mg/dL POC Glucose (mg/dL) 138 H (70-110) mg/dL Troponin I (0.000-0.034) ng/mL Total Protein (6.3-8.2) g/dL Albumin (3.5-5.0) g/dL Urine Appearance Cloudy H (Clear) Urine Protein Trace H (Negative) Urine Blood Small H (Negative) Urine RBC 22 H (0-5) /hpf Urine Bacteria Rare H (None) /hpf Urine Mucus Rare H (None) /hpf 10/19/22 10/19/22 10/19/22 Range/Units 10:18 10:18 14:27 RBC (3.80-5.40) m/uL Hgb (11.4-16.0) gm/dL Hct (34.0-46.0) % MCHC (31.0-37.0) g/dL RDW (11.5-15.5) % Lymphocytes # (1.0-4.8) k/uL Sodium 135 L (137-145) mmol/L Carbon Dioxide 18 L (22-30) mmol/L BUN 21 H (7-17) mg/dL Creatinine 1.30 H (0.52-1.04) mg/dL Glucose 132 H (74-99) mg/dL POC Glucose (mg/dL) (70-110) mg/dL Troponin I 3.060 H* 3.950 H* (0.000-0.034) ng/mL Total Protein 6.2 L (6.3-8.2) g/dL Albumin 3.2 L (3.5-5.0) g/dL Urine Appearance (Clear) Urine Protein (Negative) Urine Blood (Negative) Urine RBC (0-5) /hpf Urine Bacteria (None) /hpf Urine Mucus (None) /hpf 10/19/22 Range/Units 17:23 RBC (3.80-5.40) m/uL Hgb (11.4-16.0) gm/dL Hct (34.0-46.0) % MCHC (31.0-37.0) g/dL RDW (11.5-15.5) % Lymphocytes # (1.0-4.8) k/uL Sodium (137-145) mmol/L Carbon Dioxide (22-30) mmol/L BUN (7-17) mg/dL Creatinine (0.52-1.04) mg/dL Glucose (74-99) mg/dL POC Glucose (mg/dL) (70-110) mg/dL Troponin I 3.310 H* (0.000-0.034) ng/mL Total Protein (6.3-8.2) g/dL Albumin (3.5-5.0) g/dL Urine Appearance (Clear) Urine Protein (Negative) Urine Blood (Negative) Urine RBC (0-5) /hpf Urine Bacteria (None) /hpf Urine Mucus (None) /hpf
[2022-10-19] MEDS: ARTIFICIAL TEARS-HYPROMELLOSE DROPS 15 ML BTL BOTH EYES SCH (22:41)
[2022-10-19] MEDS: BRIMONIDINE TARTRATE 0.2% DROPS 5 ML BTL BOTH EYES SCH (22:41)
[2022-10-19] MEDS: TIMOLOL 0.5% OPHTH DROPS 5 ML BTL BOTH EYES SCH (22:41)
[2022-10-20] MEDS: ACETAMINOPHEN TAB 500 MG TAB PO SCH ×4 (00:57→19:51)
[2022-10-20 08:43] LABS: African American GFR (CKD) 38 (>60 ml/min/1.73 sqM); Anion Gap 12 mmol/L; Blood Urea Nitrogen 30 mg/dL (7-17); Calcium 9.1 mg/dL (8.4-10.2); Carbon Dioxide 15 mmol/L (22-30); Chloride 109 mmol/L (98-107); Glucose 106 mg/dL (74-99); Non-African American GFR(CKD) 33 (>60 ml/min/1.73 sqM); Potassium 3.9 mmol/L (3.5-5.1); Sodium 136 mmol/L (137-145)
[2022-10-20] MEDS: ISOSORBIDE MONONITRATE ER 30 MG TAB.ER.24H PO SCH (08:53)
[2022-10-20] MEDS: ASPIRIN 81 MG PO SCH (08:54)
[2022-10-20] MEDS: ATORVASTATIN 40 MG TAB PO SCH (08:54)
[2022-10-20] MEDS: METOPROLOL TARTRATE 25 MG TAB PO SCH ×2 (08:55→19:52)
[2022-10-20 08:57] LABS: HCT 26.2 % (34.0-46.0); HGB 8.1 gm/dL (11.4-16.0); Hypochromasia Marked; MCH 29.2 pg (25.0-35.0); MCHC 30.8 g/dL (31.0-37.0); Mean Platelet Volume 9.6; Platelet Count 344 k/uL (150-450); RBC 2.77 m/uL (3.80-5.40); RDW 15.5 % (11.5-15.5); WBC 9.2 k/uL (3.8-10.6)
[2022-10-20] MEDS: acetaZOLAMIDE 250 MG TAB PO SCH ×2 (08:57→19:53)
[2022-10-20] MEDS ORDERED: amLODIPine 10 MG TAB PO SCH (09:00)
[2022-10-20] MEDS ORDERED: ASPIRIN 325 MG TAB PO SCH (09:00)
[2022-10-20 09:01] LABS: MCV 94.7 fL (80.0-100.0)
[2022-10-20] MEDS: TIMOLOL 0.5% OPHTH DROPS 5 ML BTL BOTH EYES SCH ×2 (10:19→20:51)
[2022-10-20] MEDS: ARTIFICIAL TEARS-HYPROMELLOSE DROPS 15 ML BTL BOTH EYES SCH ×4 (10:19→19:55)
[2022-10-20] MEDS: BRIMONIDINE TARTRATE 0.2% DROPS 5 ML BTL BOTH EYES SCH ×2 (10:19→20:23)
[2022-10-20] MEDS: DORZOLAMIDE HCL 2% DROPS 10 ML BTL BOTH EYES SCH ×3 (10:20→17:52)
--- NOTE | 2022-10-20 10:20 | CA ---
Transthoracic Echo Report Name: Juana Pop Age: 86 Gender: F : 1935 Exam Date: 10/20/2022 07:36 Exam Location: [facility] Ht (in): 60 Wt (lb): 135 Ordering Physician: Fe Oliveira MD ([id number]) Attending/Referring Phys: Customer Solutions Coordinator Mariano Pop Procedure CPT: Indications: IL Cardiac Hx: Technical Quality: Fair Contrast 1: Total Dose (mL): Contrast 2: Total Dose (mL): MEASUREMENTS (Male / Female) Normal Values 2D ECHO LV Diastolic Diameter PLAX 2.9 cm 4.2 - 5.9 / 3.9 - 5.3 cm LV Systolic Diameter PLAX 1.9 cm IVS Diastolic Thickness 1.3 cm 0.6 - 1.0 / 0.6 - 0.9 cm LVPW Diastolic Thickness 1.3 cm 0.6 - 1.0 / 0.6 - 0.9 cm LV Relative Wall Thickness 0.9 RV Internal Dim ED PLAX 2.8 cm LVOT Diameter 2.1 cm Aortic Root Diameter 3.0 cm LA Systolic Diameter LX 2.6 cm 3.0 - 4.0 / 2.7 - 3.8 cm LV Diastolic Volume MOD BP 33.1 cm??? 67 - 155 / 56 - 104 cm??? LV Systolic Volume MOD BP 10.7 cm??? 22 - 58 / 19 - 49 cm??? LV Ejection Fraction MOD BP 67.5 % >= 55 % LV Diastolic Volume MOD 4C 30.4 cm??? LV Systolic Volume MOD 4C 8.8 cm??? LV Ejection Fraction MOD 4C 71.0 % LV Diastolic Length 4C 6.1 cm LV Systolic Length 4C 5.6 cm LV Diastolic Volume MOD 2C 36.4 cm??? LV Systolic Volume MOD 2C 15.0 cm??? LV Ejection Fraction MOD 2C 58.9 % LV Diastolic Length 2C 6.1 cm LV Systolic Length 2C 5.7 cm LA Volume 40.9 cm??? 18 - 58 / 22 - 52 cm??? Ascending Aorta Diameter 3.1 cm DOPPLER AV Peak Velocity 130.2 cm/s AV Peak Gradient 6.8 mmHg LVOT Peak Velocity 113.1 cm/s LVOT Peak Gradient 5.1 mmHg AV Area Cont Eq pk 3.0 cm??? MV Peak Velocity 127.6 cm/s MV Peak Gradient 6.5 mmHg MV Mean Velocity 60.0 cm/s MV Mean Gradient 1.8 mmHg MV Velocity Time Integral 22.6 cm MR Peak Velocity 502.4 cm/s MR Peak Gradient 101.0 mmHg Mitral E Point Velocity 100.9 cm/s Mitral A Point Velocity 70.2 cm/s Mitral E to A Ratio 1.4 MV Deceleration Time 127.4 ms MV E' Velocity 3.2 cm/s Mitral E to MV E' Ratio 31.6 TR Peak Velocity 291.5 cm/s TR Peak Gradient 34.0 mmHg Right Ventricular Systolic Press 39.0 mmHg PV Peak Velocity 86.5 cm/s PV Peak Gradient 3.0 mmHg FINDINGS Left Ventricle Normal LV size. Mild to moderate concentric LVH. Left ventricular ejection fraction is estimated at _55-60 %. Right Ventricle Normal right ventricular size. RVSP= 41mmhg. Right Atrium Normal right atrial size. Left Atrium Normal left atrial size. Mitral Valve Structurally normal mitral valve. Moderate MR. Aortic Valve Trileaflet aortic valve. No aortic valve stenosis or regurgitation. Tricuspid Valve Structurally normal tricuspid valve. Moderate TR. Pulmonic Valve Structurally normal pulmonic valve. Mild PI. Pericardium Normal pericardium. Aorta Normal size aortic root and proximal ascending aorta. CONCLUSIONS Technically challenging secondary to respiratory variations/ artifact. Normal LV systolic function Moderate mitral regurgitation Previewed by: Dr. Arslan Mayberry MD (Electronically Signed) Final Date: 20 October 2022 10:19
--- NOTE | 2022-10-20 12:17 | P.PN ---
Subjective Progress Note Date: 10/20/22 HISTORY OF PRESENT ILLNESS: The patient is an 86-year-old female who was transferred from long-term for change in mental status and hypoxemia. Patient is not quite sure why she is here. She thinks she was dyspneic but better now. She denies any chest discomfort at the time of my evaluation, she is vague about having chest discomfort in the past. She has occasional palpitations but no syncope. She has no peripheral edema, PND or orthopnea according to her. She is limited in her physical activity. She denies any prior history of myocardial infarction or congestive heart failure. No other history is obtained. Her EKG shows evidence of anterior wall myocardial infarction of unknown timing. No prior EKG is available. On presentation her troponin is 3.0 with a creatinine 1.3 and hemoglobin of 8.9. Her chest x-ray shows right lung capacity with possible mass. The patient is nonsmoker, she has a history of hypertension, she is nondiabetic Medications: DuoNeb, Diamox, amlodipine 10 mg daily, aspirin once a day 10/20/2022 Patient examined this morning in the emergency room. Patient denies chest pain or pressure. She currently denies shortness of breath. She remains on IV Heparin. Blood pressure running on the lower side with SBP 84-100. PHYSICAL EXAM: VITAL SIGNS: Reviewed. GENERAL: Well-developed in no acute distress. NECK: Supple. No JVD or thyromegaly LUNGS: Respirations even and unlabored. Lungs essentially clear to auscultation bilaterally. HEART: Regular rate and rhythm. S1 and S2 heard. + systolic murmur EXTREMITIES: Normal range of motion. No clubbing or cyanosis. Peripheral pulses intact. No lower extremity edema ASSESSMENT: Shortness of breath Elevated troponin with evidence of anterior wall MA of unknown timing, currently denies chest pain Right sided lung mass Borderline hypotension COPD Anemia Hypertension Acute kidney injury PLAN: Pulmonary following for lung mass Discontinue IV heparin Discontinue Norvasc due to soft blood pressures Continue with conservative management at this time from a cardiac standpoint Further recommendations pending patient course Nurse practitioner note has been reviewed by physician. Signing provider agrees with the documented findings, assessment, and plan of care. Objective - Vital Signs Vital signs: Vital Signs Temp 97.8 F 10/20/22 11:23 Pulse 79 10/20/22 11:49 Resp 18 10/20/22 11:49 BP 133/82 10/20/22 11:49 Pulse Ox 95 10/20/22 11:23 FiO2 Intake & Output 10/19/22 10/20/22 10/20/22 18:59 06:59 18:59 Intake Total 48.987 Balance 48.987 Weight 61.235 kg Intake: Intake, IV Titration 48.987 Amount Heparin Sod,Pork in 0.45% 48.987 NaCl 25,000 unit In 0.45 % NaCl 1 250ml.bag @ 12 UNITS/KG/HR 7.348 mls/hr IV .Q24H [facility] Rx#: [id number] - Labs CBC & Chem 7: 10/20/22 08:06 10/20/22 08:06 Labs: Abnormal Lab Results - Last 24 Hours (Table) 10/19/22 10/19/22 10/19/22 Range/Units 10:18 14:27 17:23 RBC (3.80-5.40) m/uL Hgb (11.4-16.0) gm/dL Hct (34.0-46.0) % MCHC (31.0-37.0) g/dL APTT (22.0-30.0) sec Sodium (137-145) mmol/L Chloride (98-107) mmol/L Carbon Dioxide (22-30) mmol/L BUN (7-17) mg/dL Creatinine (0.52-1.04) mg/dL Glucose (74-99) mg/dL Troponin I 3.950 H* 3.310 H* (0.000-0.034) ng/mL Urine Appearance Cloudy H (Clear) Urine Protein Trace H (Negative) Urine Blood Small H (Negative) Urine RBC 22 H (0-5) /hpf Urine Bacteria Rare H (None) /hpf Urine Mucus Rare H (None) /hpf 10/19/22 10/20/22 10/20/22 Range/Units 23:38 08:06 08:06 RBC 2.77 L (3.80-5.40) m/uL Hgb 8.1 L (11.4-16.0) gm/dL Hct 26.2 L (34.0-46.0) % MCHC 30.8 L (31.0-37.0) g/dL APTT 18.9 L (22.0-30.0) sec Sodium 136 L (137-145) mmol/L Chloride 109 H (98-107) mmol/L Carbon Dioxide 15 L (22-30) mmol/L BUN 30 H (7-17) mg/dL Creatinine 1.44 H (0.52-1.04) mg/dL Glucose 106 H (74-99) mg/dL Troponin I (0.000-0.034) ng/mL Urine Appearance (Clear) Urine Protein (Negative) Urine Blood (Negative) Urine RBC (0-5) /hpf Urine Bacteria (None) /hpf Urine Mucus (None) /hpf 10/20/22 Range/Units 08:06 RBC (3.80-5.40) m/uL Hgb (11.4-16.0) gm/dL Hct (34.0-46.0) % MCHC (31.0-37.0) g/dL APTT 61.7 H (22.0-30.0) sec Sodium (137-145) mmol/L Chloride (98-107) mmol/L Carbon Dioxide (22-30) mmol/L BUN (7-17) mg/dL Creatinine (0.52-1.04) mg/dL Glucose (74-99) mg/dL Troponin I (0.000-0.034) ng/mL Urine Appearance (Clear) Urine Protein (Negative) Urine Blood (Negative) Urine RBC (0-5) /hpf Urine Bacteria (None) /hpf Urine Mucus (None) /hpf
--- NOTE | 2022-10-20 13:58 | P.PN ---
Subjective Progress Note Date: 10/20/22 86-year-old female patient, [facility] resident with at transferred to us because of altered mentation and hypoxemia. The patient denies having any chest pain. . She denies having any palpitations. No syncope. No orthopnea. No edema. On her blood work, her troponin was elevated at 3.0. Noted the rest of the left showed edematous count of 8.6 with a hemoglobin of 8.9 and a platelet count of 366. Normal coagulation profile. BUN was 21 with a creatinine of 1.3 and a sodium level was at 135 with a bicarb level of 18. Troponin peaked at 3.9 and a proBNP level was 5490. UA was negative. LFTs were essentially within normal limits. The EKG showed Q waves over the anterior septal leads consistent with a previous myocardial infarction. Cardiac rhythm was sinus. Chest x-ray also showed an increased opacity throughout the right lung with a mass in the right upper lobe area. Noted the patient has had a outpatient CAT scan of the chest through her primary care physician and the CAT scan showed atelectasis with opacification of the right upper lobe an abrupt cutoff of the upper lobe b ronchus and addition to have suspicious mass in the right hilar area. Findings are highly suspicious for underlying primary lung malignancy. Note that this CAT scan was done without contrast at this point, the patient is being hospitalized and the pulmonary consultation was requested. Patient is currently on 3 L of O2 nasal cannula with a pulse ox of 94%. Patient is quite debilitated. She does limited amount of walking. She has poor insight on her condition. Denies having any hemoptysis On today's evaluation of 10/20/2022, the patient is essentially the same compared to yesterday. She is having episodes of confusion, noted that she has underlying dementia. The white cell cause of 9.2 with hemoglobin of 8.1 and a platelet count of 344. BUN is at 30 with a creatinine of 1.4. Troponin peaked at 3.9 and the patient remains on IV heparin with a therapeutic PTT. The enzymes at 30 with a creatinine 1.4 and sodium levels of 136.. Note that his been no improvement in the patient's renal function since yesterday and based on that I ordered a noncontrast CAT scan of the brain and a chest. Echocardiogram was done and the patient has normal LV function, moderate degree of mitral regurgitation, ejection fraction was estimated to be around 55-60%. The patient is resting comfortably in bed. She is on 4 L of oxygen by nasal cannula with a pulse ox of 95%. The patient was seen by cardiology. Objective - Vital Signs Vital signs: Vital Signs Temp 97.8 F 10/20/22 11: Pulse 78 10/20/22 11:23 Resp 20 10/20/22 11:23 BP 84/52 10/20/22 11:23 Pulse Ox 95 10/20/22 11:23 FiO2 Intake & Output 10/19/22 10/20/22 10/20/22 18:59 06:59 18:59 Intake Total 48.987 Balance 48.987 Weight 61.235 kg Intake: Intake, IV Titration 48.987 Amount Heparin Sod,Pork in 0.45% 48.987 NaCl 25,000 unit In 0.45 % NaCl 1 250ml.bag @ 12 UNITS/KG/HR 7.348 mls/hr IV .Q24H [facility] Rx#: [id number] - Exam calm and comfortable Head: Normocephalic. Eyes: Sclerae nonicteric. Neck: Good carotid upstroke, no bruit, no jugular venous distention. Lungs: Clear to auscultation. Heart: Regular rate and rhythm, S1-S2, no S3, no rub. Systolic ejection murmur. Abdomen: Soft nontender, positive bowel sounds no organomegaly. Extremities: No edema, intact distal pulses. Examination of the skin revealed no evidence of significant rashes, suspicious appearing nevi or other concerning lesions. - Labs CBC & Chem 7: 10/20/22 08:06 10/20/22 08:06 Labs: Abnormal Lab Results - Last 24 Hours (Table) 10/19/22 10/19/22 10/19/22 Range/Units 10:18 14:27 17:23 RBC (3.80-5.40) m/uL Hgb (11.4-16.0) gm/dL Hct (34.0-46.0) % MCHC (31.0-37.0) g/dL APTT (22.0-30.0) sec Sodium (137-145) mmol/L Chloride (98-107) mmol/L Carbon Dioxide (22-30) mmol/L BUN (7-17) mg/dL Creatinine (0.52-1.04) mg/dL Glucose (74-99) mg/dL Troponin I 3.950 H* 3.310 H* (0.000-0.034) ng/mL Urine Appearance Cloudy H (Clear) Urine Protein Trace H (Negative) Urine Blood Small H (Negative) Urine RBC 22 H (0-5) /hpf Urine Bacteria Rare H (None) /hpf Urine Mucus Rare H (None) /hpf 10/19/22 10/20/22 10/20/22 Range/Units 23:38 08:06 08:06 RBC 2.77 L (3.80-5.40) m/uL Hgb 8.1 L (11.4-16.0) gm/dL Hct 26.2 L (34.0-46.0) % MCHC 30.8 L (31.0-37.0) g/dL APTT 18.9 L (22.0-30.0) sec Sodium 136 L (137-145) mmol/L Chloride 109 H (98-107) mmol/L Carbon Dioxide 15 L (22-30) mmol/L BUN 30 H (7-17) mg/dL Creatinine 1.44 H (0.52-1.04) mg/dL Glucose 106 H (74-99) mg/dL Troponin I (0.000-0.034) ng/mL Urine Appearance (Clear) Urine Protein (Negative) Urine Blood (Negative) Urine RBC (0-5) /hpf Urine Bacteria (None) /hpf Urine Mucus (None) /hpf 10/20/22 Range/Units 08:06 RBC (3.80-5.40) m/uL Hgb (11.4-16.0) gm/dL Hct (34.0-46.0) % MCHC (31.0-37.0) g/dL APTT 61.7 H (22.0-30.0) sec Sodium (137-145) mmol/L Chloride (98-107) mmol/L Carbon Dioxide (22-30) mmol/L BUN (7-17) mg/dL Creatinine (0.52-1.04) mg/dL Glucose (74-99) mg/dL Troponin I (0.000-0.034) ng/mL Urine Appearance (Clear) Urine Protein (Negative) Urine Blood (Negative) Urine RBC (0-5) /hpf Urine Bacteria (None) /hpf Urine Mucus (None) /hpf Assessment and Plan Plan: Right upper lobe opacification in addition to atelectasis of the right upper lobe. The patient has a hilar mass with atelectasis of the right upper lobe and cut off sign of the right upper lobe bronchus, highly suspicious for malignancy COPD with moderate emphysematous changes and lower lobe honeycombing Elevation of the right hemidiaphragm, consider right hemidiaphragmatic paralysis Acute kidney injury Acute non-ST segment elevation myocardial infarction, currently on IV heparin Non-gap metabolic acidosis Chronic anemia Hypertension Suspect dementia, with episodes of confusion halfway resident Plan Right hilar mass. CAT scan of the chest that was done on 09/08/2022. Shows a right hilar mass with obstruction of the right upper lobe bronchus along with atelectatic changes in the right upper lobe and volume loss. Findings are highly suspicious for underlying malignancy, likely a primary bronchogenic carcinoma of the lung. Acute non-ST segment elevation myocardial infarction and EKG showed old Q waves involving the anteroseptal leads Acute kidney injury versus chronic kidney disease. The patient's creatinine back in 2019 was within normal limits Chronic debility and the patient is a penitentiary resident Dementia Anemia of chronic disease Sciatica and chronic difficulties with mobility Retinal bleed involving the right eye Hypertension Plan Episodes of confusion Renal function remains unchanged Obtain a CAT scan of the head and chest noncontrast Findings are highly suggestive of lung cancer. Ideally, I would like to do a a contrast enhanced CAT scan of the chest , h owever, based underlying renal dysfunction, noncontrast CAT scan of the head and chest will be obtained. Continue IV heparin Overall performance and functional status extremely poor. On a the patient is going to be a candidate for bronchoscopy, especially that she is encountering an acute non-ST segment elevation myocardial infarction. We'll be awaiting cardiology consultation. We'll be awaiting echocardiogram. We'll discuss with the family the need for bronchoscopy and further diagnosis as on very much concerned of an underlying hilar mass causing this patient's pulmonary abnormalities. We'll continue to follow Prognosis poor based on the above
--- NOTE | 2022-10-20 14:12 | CT ---
EXAMINATION TYPE: CT brain wo con DATE OF EXAM: 10/20/2022 COMPARISON: 09/03/2022 HISTORY: ams CT DLP: 1119.9 mGycm Automated exposure control for dose reduction was used. FINDINGS: Moderate generalized degenerative change with [id number] areas of low attenuation within the wh ite matter most remotely matter microvascular ischemia. No acute disease. No midline shift or mass effect. Intracranial atherosclerotic changes noted. Severe degenerative changes atlantoaxial joint with cystic changes of the odontoid stable and moderate post erior pannus formation. Facet arthropathy at C2-C3 with severe degenerative disc disease and slight a nterolisthesis only partially included in the [id number].. Calvarium intact. Changes of chronic sinusitis and left mastoiditis. There is an air-fluid level in s phenoid sinus which could be associated with acute sinusitis hypoattenuation in the external capsule on the right and left thalamus suggestive of remote lacunar infarct. IMPRESSION: DEGENERATIVE CHANGE WITH REMOTE ISCHEMIC CHANGE AND NO EVIDENCE OF ACUTE HEMORRHAGE OR MASS EFFECT.
[2022-10-20 17:44] LABS: Chol/HDL Ratio 2.47 Ratio; VLDL Calculation 15.44 mg/dL (5.00-40.00)
[2022-10-20] MEDS: HEPARIN SODIUM,PORCINE/PF 5,000 UNIT/0.5 ML SYRINGE SQ SCH ×2 (17:50→23:57)
--- NOTE | 2022-10-20 18:17 | P.PN ---
Progress Note - Text Progress Note Date: 10/20/22 Chief Complaint: Short of breath This is a 86-year-old patient, sent to the ER from the [facility]. Per the EMS report patient has been refusing to go to doctor's appointment and needed assistance with breakfast which was abnormal for the patient. She was noted to have some labored breathing. And some change in mentation. In the ER patient does state that she some shortness of breath. States also this could be present for a while. Laying in bed. No cough. Poor historian because of dementia. Can only answer some questions. October 20: Laying in bed. Some shortness of breath. Spoke to patient's daughter over the phone. In the past after computed tomography scan of the chest it would offer to do a biopsy.Patient's overall condition was decided not to proceed with any further treatment or diagnosis. Discussed at length with the daughter. Patient to return to [facility] with hospice. Understands prognosis guarded. Several questions answered. Patient made DO NOT RESUSCITATE. No further testing for the same. IV heparin discontinued Active Medications Acetaminophen (Acetaminophen Tab 500 Mg Tab) 500 mg PO TID [facility] Last Admin: 10/20/22 17:50 Dose: Not Given Acetazolamide (Acetazolamide 250 Mg Tab) 250 mg PO BID [facility] Last Admin: 10/20/22 08:57 Dose: 250 mg Albuterol/Ipratropium (Ipratropium-Albuterol 3 Ml Neb) 3 ml INHALATION RT-Q6H PRN PRN Reason: Shortness Of Breath Artificial Tears (Artificial Tears-Hypromellose Drops 15 Ml Btl) 1 drops BOTH EYES QID [facility] Last Admin: 10/20/22 17:52 Dose: 1 drops Aspirin (Aspirin 81 Mg) 81 mg PO DAILY [facility] Last Admin: 10/20/22 08:54 Dose: 81 mg Atorvastatin Calcium (Atorvastatin 40 Mg Tab) 40 mg PO DAILY [facility] Last Admin: 10/20/22 08:54 Dose: 40 mg Brimonidine Tartrate (Brimonidine Tartrate 0.2% Drops 5 Ml Btl) 1 drops BOTH EYES BID [facility] Last Admin: 10/20/22 10:19 Dose: 1 drops Dorzolamide HCl (Dorzolamide Hcl 2% Drops 10 Ml Btl) 1 drops BOTH EYES TID@0800,1200,1800 [facility] Last Admin: 10/20/22 17:52 Dose: 1 drops Heparin Sodium (Porcine) (Heparin Sodium,Porcine/Pf 5,000 Unit/0.5 Ml Syringe) 5,000 unit SQ Q8HR [facility] Last Admin: 10/20/22 17:50 Dose: Not Given Isosorbide Mononitrate (Isosorbide Mononitrate Er 30 Mg Tab.Er.24h) 30 mg PO DAILY [facility] Last Admin: 10/20/22 08:53 Dose: 30 mg Metoprolol Tartrate (Metoprolol Tartrate 25 Mg Tab) 25 mg PO BID [facility] Last Admin: 10/20/22 08:55 Dose: 25 mg Nitroglycerin (Nitroglycerin Sl Tabs 0.4 Mg Tab) 0.4 mg SUBLINGUAL Q5M PRN PRN Reason: Chest Pain Quetiapine Fumarate (Quetiapine 25 Mg Tab) 25 mg PO HS [facility] Last Admin: 10/19/22 20:16 Dose: 25 mg Timolol Maleate (Timolol 0.5% Ophth Drops 5 Ml Btl) 1 drops BOTH EYES BID [facility] Last Admin: 10/20/22 10:19 Dose: 1 drops Tramadol HCl (Tramadol 50 Mg Tab) 50 mg PO Q12H PRN PRN Reason: Pain Past medical history to include: Dementia hypertension was to schedule disorder skin disorder sciatica Social history: Currently resident of [facility]. Started smoking in her 20s stopped in 2013. Alcohol alcohol cannot tell Physical examination: VITAL SIGNS: 98.2, 75, 17, 116/ 55, 99% on 4 L GENERAL: Resting in bed. Some shortness of breath. Tired EYES: Pupils equal. Conjunctiva normal. HEENT: External appearance of nose and ears normal, oral cavity grossly normal. NECK: JVD unable to assess; masses not palpable. HEART: First and second heart sounds are normal; no edema. LUNGS: Respiratory rate increased; decreased breath sounds. ABDOMEN: Soft, nontender, liver spleen not palpable, no masses palpable. PSYCH: Can tell her name, not really would answer the questionsl. MUSCULOSKELETAL:No Clubbing/cyanosis;muscles-grossly intact. OA INVESTIGATIONS, reviewed in the clinical context: 2-D echo: Normal LV function. Moderate MR. CT brain: Chronic changes White count 8.6 in globin 8.9 platelets 366 sodium 135 potassium 3.8 BUN 21 creatinine 1.30 Troponin I 3.0, 3.9, 3.3. ProBNP 5490 Urine drug screen: Negative EKG tracing personally reviewed by me-sinus rhythm. 93. Low voltage. Chest x-ray film personally reviewed by me-probable right pleural effusion, possible right upper lobe collapse Previous testing: CT chest without contrast: [July 2022] Atelectasis with opacification of the right upper lobe and upper of control both the upper lobe bronchus. Mass like appearance of the right hilum findings are concerning for primary lung malignancy. Moderate interstitial pulmonary fibrotic changes. Assessment and plan: -Acute non-Q wave LA. Aspirin. Lopressor. Telemetry. Follow with cardiology .. IV heparin- discontinued -IV heparin monitoring-discontinued -Right lung mass with collapse from July 2022. This was a computed tomography scan ordered by Dr. Styles/PCP.: Likely lung cancer Daughter who is also the DPO had previously decided not for any further workup.. -COPD in a previous smoker DuoNeb -Essential hypertension Amlodipine 10 mg -Severe cognitive impairment likely from underlying Alzheimer's dementia -Primary osteoarthritis Tylenol as needed -Acute hypoxic respiratory failure, from pleural effusion/lobar collapse -DO NOT RESUSCITATE No further testing. Patient be discharged to the ECF tomorrow. Hospice consult and be consulted Advance care planning: Spoke to patient's daughter. She did say that previously computed tomography scan results were discussed with her. Given patient's comorbidity H and poor prognosis then decide don't any further workup treatment or biopsy. This point increase Dr. proceed with any further diagnostics testing as it to change outcome. Patient is being made DO NOT RESUSCITATE. He'll be discharged to ECF followed by hospice. Time spent about 25 minutes
[2022-10-20] MEDS: QUEtiapine 25 MG TAB PO SCH (19:53)
[2022-10-21 00:41] VITALS: RESP 18
[2022-10-21 07:24] VITALS: BP 134/73; PULSE 89; TEMP 97.7
--- NOTE | 2022-10-21 07:25 | CT ---
EXAMINATION TYPE: CT chest wo con DATE OF EXAM: 10/20/2022 COMPARISON: Radiographs 10/19/[address] 07/29/2022 HISTORY: 86-year-old female with history of mass, pleural effusion TECHNIQUE: Contiguous axial scanning of the chest without IV contrast. Coronal and sagittal reconstru ctions performed. CT DLP: 228.6 mGycm Automated exposure control for dose reduction was used. FINDINGS: Increased generalized anasarca change. Heart normal size without pericardial effusion. Scattered mild LAD and circumflex coronary artery dino cifications are present. Mild to moderate atherosclerotic arch calcifications with conventional arch vessel branching anatomy. Redemonstrated cut off of the right upper lobe bronchus secondary to suspected underlying large mass measuring at least 8 cm, increased from prior exam. There is secondary right upper lobe collapse. Add itional underlying masses within the right upper to midlung could measure up to 8.[address] eural-based nodularity anterior right base measuring up to 3.1 cm. There is a moderate to large right -sided pleural effusion now present. Trace effusion on the left. Patchy and confluent groundglass opacity has developed on the left. Backg round moderately advanced emphysema. Suspect underlying precarinal adenopathy measuring up to 1.9 cm and subcarinal adenopathy measuring u p to 1.9 cm as well. 1.7 cm hypodensity right hepatic dome is nonspecific but could represent metastatic disease. No clear ly seen previously. Possible new 2.4 cm nodularity right adrenal gland may represent metastatic disease. There is dextroconvex scoliosis of the lumbar spine. No osseous destructive process. There is end-st age rotator cuff arthropathy at the right shoulder. Possible chronic stress fracture of the acromion due to shoulder joint instability. Prominent associated bursal and joint effusion on the right. IMPRESSION: 1. INTERVAL DISEASE PROGRESSION COMPARED TO 07/29/2022. CONTINUED MASS CUTTING OFF THE RIGHT UPPER LOB E BRONCHUS WITH RIGHT UPPER LOBE COLLAPSE. SUSPECT UNDERLYING MASS TO MEASURE UP TO NEARLY 8 CM NOW. THERE MAY BE A ADDITIONAL UNDERLYING MASSES IN THE RIGHT UPPER TO MIDLUNG MEASURING UP TO 8.3 CM. MED IAL PLEURAL BASED NODULARITY ANTERIOR RIGHT BASE MEASURING UP TO 3.1 CM. 2. NEW MODERATE TO LARGE RIGHT PLEURAL EFFUSION. PRECARINAL AND SUBCARINAL ADENOPATHY MEASURING UP TO 1.9 CM. 3. A 1.7 CM LESION IN THE RIGHT HEPATIC DOME NOT CLEARLY SEEN PREVIOUSLY. METASTATIC DISEASE NOT EXCL UDED AT THIS TIME. ADDITIONALLY, THERE IS POSSIBLE NEW 2.4 CM NODULARITY OF THE RIGHT ADRENAL GLAND. 4. MARKED GENERALIZED ANASARCA. TRACE LEFT EFFUSION. GROUNDGLASS CHANGES THROUGHOUT THE LEFT LUNG COU LD CORRESPOND TO PATCHY PULMONARY EDEMA VERSUS PNEUMONITIS. CLINICALLY CORRELATE.
[2022-10-21] MEDS: ACETAMINOPHEN TAB 500 MG TAB PO SCH ×2 (08:50→15:10)
[2022-10-21] MEDS: HEPARIN SODIUM,PORCINE/PF 5,000 UNIT/0.5 ML SYRINGE SQ SCH ×2 (08:50→15:10)
[2022-10-21] MEDS: acetaZOLAMIDE 250 MG TAB PO SCH (08:51)
[2022-10-21] MEDS: ATORVASTATIN 40 MG TAB PO SCH (08:51)
[2022-10-21] MEDS: ASPIRIN 81 MG PO SCH (08:51)
[2022-10-21] MEDS: ISOSORBIDE MONONITRATE ER 30 MG TAB.ER.24H PO SCH (08:51)
[2022-10-21] MEDS: METOPROLOL TARTRATE 25 MG TAB PO SCH (08:52)
--- NOTE | 2022-10-21 09:18 | P.PN ---
Subjective Progress Note Date: 10/21/22 HISTORY OF PRESENT ILLNESS: The patient is an 86-year-old female who was [facility] for change in mental status and hypoxemia. Patient is not quite sure why she is here. She thinks she was dyspneic but better now. She denies any chest discomfort at the time of my evaluation, she is vague about having chest discomfort in the past. She has occasional palpitations but no syncope. She has no peripheral edema, PND or orthopnea according to her. She is limited in her physical activity. She denies any prior history of myocardial infarction or congestive heart failure. No other history is obtained. Her EKG shows evidence of anterior wall myocardial infarction of unknown timing. No prior EKG is available. On presentation her troponin is 3.0 with a creatinine 1.3 and hemoglobin of 8.9. Her chest x-ray shows right lung capacity with possible mass. The patient is nonsmoker, she has a history of hypertension, she is nondiabetic Medications: DuoNeb, Diamox, amlodipine 10 mg daily, aspirin once a day 10/20/2022 Patient examined this morning in the emergency room. Patient denies chest pain or pressure. She currently denies shortness of breath. She remains on IV Heparin. Blood pressure running on the lower side with SBP 84-100. 10/21 Patient seen today on the MedSurg floor. She denies having any chest pain and no shortness of breath. She is complaining of significant back pain and states she has not moved from her position for many hours. Yesterday, Norvasc was discontinued due to soft blood pressures. This morning blood pressure 134/73, heart rate in the 70s and 80s. Pulse ox is 97% on 4 L nasal cannula. talent acquisition sourcer is a first-degree AV block sinus rhythm. Plan is for patient to breaux sition to hospice care outpatient. PHYSICAL EXAM: VITAL SIGNS: Reviewed. GENERAL: Well-developed in no acute distress. NECK: Supple. No JVD or thyromegaly LUNGS: Respirations even and unlabored. Lungs essentially clear to auscultation bilaterally. HEART: Regular rate and rhythm. S1 and S2 heard. + systolic murmur EXTREMITIES: Normal range of motion. No clubbing or cyanosis. Peripheral pulses intact. No lower extremity edema ASSESSMENT: Shortness of breath Elevated troponin with evidence of anterior wall VA of unknown timing, currently denies chest pain Right sided lung mass Borderline hypotension COPD Anemia Hypertension Acute kidney injury PLAN: Continue patient's current cardiac medications Continue with conservative management at this time from a cardiac standpoint Patient is scheduled to transition to hospice care. Cardiology will sign off and follow on an as-needed basis. Nurse practitioner note has been reviewed by physician. Signing provider agrees with the documented findings, assessment, and plan of care. Objective - Vital Signs Vital signs: Vital Signs Temp 97.7 F 10/21/22 07:12 Pulse 89 10/21/22 07:12 Resp 18 10/21/22 07:12 BP 134/73 10/21/22 07:12 Pulse Ox 97 10/21/22 08:45 FiO2 Intake & Output 10/20/22 10/21/22 10/21/22 18:59 06:59 18:59 Weight 61.235 kg Other: Voiding Method Incontinent External Catheter # Voids 1 2 1 - Labs CBC & Chem 7: 10/20/22 08:06 10/20/22 08:06 Labs: Abnormal Lab Results - Last 24 Hours (Table) 10/20/22 Range/Units 08:06 RBC 2.77 L (3.80-5.40) m/uL Hgb 8.1 L (11.4-16.0) gm/dL Hct 26.2 L (34.0-46.0) % MCHC 30.8 L (31.0-37.0) g/dL
[2022-10-21] MEDS: ARTIFICIAL TEARS-HYPROMELLOSE DROPS 15 ML BTL BOTH EYES SCH ×2 (10:51→12:23)
[2022-10-21] MEDS: DORZOLAMIDE HCL 2% DROPS 10 ML BTL BOTH EYES SCH ×2 (10:51→12:23)
[2022-10-21] MEDS: BRIMONIDINE TARTRATE 0.2% DROPS 5 ML BTL BOTH EYES SCH (10:52)
[2022-10-21] MEDS: TIMOLOL 0.5% OPHTH DROPS 5 ML BTL BOTH EYES SCH (10:52)
--- NOTE | 2022-10-21 13:48 | P.DS ---
Providers Date of admission: 10/19/22 14:54 Expected date of discharge: 10/21/22 Attending physician: Franklin Spencer Consults: 10/19/22 14:54 Consult Physician Urgent Consulting Provider: [facility] Consult Reason/Comments: Non-STEMI Do you want consulting provider notified?: Yes Consult Physician Urgent Consulting Provider: Kasi Chu Consult Reason/Comments: Pleural effusion Do you want consulting provider notified?: Yes Primary care physician: [facility] Course: Chief Complaint: Short of breath This is a 86-year-old patient, sent to the ER from the [facility]. Per the EMS report patient has been refusing to go to doctor's appointment and needed assistance with breakfast which was abnormal for the patient. She was noted to have some labored breathing. And some change in mentation. In the ER patient does state that she some shortness of breath. States also this could be present for a while. Laying in bed. No cough. Poor historian because of dementia. Can only answer some questions. October 20: Laying in bed. Some shortness of breath. Spoke to patient's daughter over the phone. In the past after computed tomography scan of the chest it would offer to do a biopsy.Patient's overall condition was decided not to proceed with any further treatment or diagnosis. Discussed at length with the daughter. Patient to return to [facility] with hospice. Understands prognosis guarded. Several questions answered. Patient made DO NOT RESUSCITATE. No further testing for the same. IV heparin discontinued October 21: Laying in bed. We will answer simple questions. Nasal cannula. Not eating. Patient return to [facility] with hospice. Discussed with the nurse. Discussion and discharge planning more than 35 minutes Past medical history to include: Dementia hypertension was to schedule disorder skin disorder sciatica Social history: Currently resident of [facility]. Started smoking in her 20s stopped in 2013. Alcohol alcohol cannot tell Physical examination: VITAL SIGNS: 97.7, 89, 18, 1:30/73, 96% on 4 L GENERAL: Resting in bed. Awake Tired EYES: Pupils equal. Conjunctiva normal. HEENT: External appearance of nose and ears normal, oral cavity grossly normal. NECK: JVD unable to assess; masses not palpable. HEART: First and second heart sounds are normal; no edema. LUNGS: Respiratory rate increased; decreased breath sounds. ABDOMEN: Soft, nontender, liver spleen not palpable, no masses palpable. PSYCH: Answer some very simple questions. MUSCULOSKELETAL:No Clubbing/cyanosis;muscles-grossly intact. OA INVESTIGATIONS, reviewed in the clinical context: 2-D echo: Normal LV function. Moderate MR. CT brain: Chronic changes White count 8.6 in globin 8.9 platelets 366 sodium 135 potassium 3.8 BUN 21 creatinine 1.30 Troponin I 3.0, 3.9, 3.3. ProBNP 5490 Urine drug screen: Negative EKG tracing personally reviewed by me-sinus rhythm. 93. Low voltage. Chest x-ray film personally reviewed by me-probable right pleural effusion, possible right upper lobe collapse Previous testing: CT chest without contrast: [July 2022] Atelectasis with opacification of the right upper lobe and upper of control both the upper lobe bronchus. Mass like appearance of the right hilum findings are concerning for primary lung malignancy. Moderate interstitial pulmonary fibrotic changes. Assessment and plan: -Acute non-Q wave IL. Aspirin. Lopressor. Telemetry. Follow with cardiology .. IV heparin- discontinued -IV heparin monitoring-discontinued -Right lung mass with collapse from July 2022. This was a computed tomography scan ordered by Dr. Styles/PCP.: Likely lung cancer Daughter who is also the DPO had previously decided not for any further workup.. -COPD in a previous smoker DuoNeb -Essential hypertension Lopressor -Severe cognitive impairment likely from underlying Alzheimer's dementia -Primary osteoarthritis Tylenol as needed -Acute hypoxic respiratory failure, from pleural effusion/lobar collapse Supplemental oxygen -DO NOT RESUSCITATE Advance care planning: [10/20/2022] Spoke to patient's daughter. She did say that previously computed tomography scan results were discussed with her. Given patient's comorbidity H and poor prognosis then decide don't any further workup treatment or biopsy. This point increase Dr. proceed with any further diagnostics testing as it to change outcome. Patient is being made DO NOT RESUSCITATE. He'll be discharged to [facility] followed by hospice. Time spent about 25 minutes [facility]. Plan - Discharge Summary Discharge Rx Participant: No New Discharge Prescriptions: New Isosorbide Mononitrate ER [Imdur] 30 mg PO DAILY tab Metoprolol Tartrate [Lopressor] 25 mg PO BID tab Nitroglycerin Sl Tabs [Nitrostat] 0.4 mg SUBLINGUAL Q5M PRN tab PRN Reason: Chest Pain Atorvastatin [Lipitor] 40 mg PO DAILY tab Continue Ipratropium-Albuterol Nebulize [Duoneb 0.5 mg-3 mg/3 ml Soln] 3 ml INHALATION RT-Q6H PRN PRN Reason: Shortness Of Breath Dorzolamide 2% [Trusopt 2%] 1 drops BOTH EYES TID@0800,1200,1800 Acetaminophen Tab [Tylenol] 500 mg PO TID Brimonidine Tartrate/Timolol [Combigan 0.2%-0.5% Eye Drops] 1 drop BOTH EYES BID QUEtiapine FUMARATE [SEROquel] 25 mg PO HS House Supplement 120 ml PO HS Healthshake 1 dose PO W/BRKFST traMADol HCl [Ultram] 50 mg PO Q12H PRN #6 tab PRN Reason: Pain Artificial Tears-Hypromellose [Artificial Tear Drops] 1 drop BOTH EYES QID acetaZOLAMIDE [Diamox] 250 mg PO BID Aspirin 81 mg PO DAILY Discontinued amLODIPine 10 mg PO QAM Discharge Medication List Acetaminophen Tab [Tylenol] 500 mg PO TID 10/19/22 [History] Artificial Tears-Hypromellose [Artificial Tear Drops] 1 drop BOTH EYES QID 10/19/22 [History] Aspirin 81 mg PO DAILY 10/19/22 [History] Brimonidine Tartrate/Timolol [Combigan 0.2%-0.5% Eye Drops] 1 drop BOTH EYES BID 10/19/22 [History] Dorzolamide 2% [Trusopt 2%] 1 drops BOTH EYES TID@0800,1200,1800 10/19/22 [History] Healthshake 1 dose PO W/BRKFST 10/19/22 [History] House Supplement 120 ml PO HS 10/19/22 [History] Ipratropium-Albuterol Nebulize [Duoneb 0.5 mg-3 mg/3 ml Soln] 3 ml INHALATION RT-Q6H PRN 10/19/22 [History] QUEtiapine FUMARATE [SEROquel] 25 mg PO HS 10/19/22 [History] acetaZOLAMIDE [Diamox] 250 mg PO BID 10/19/22 [History] Atorvastatin [Lipitor] 40 mg PO DAILY tab 10/21/22 [Rx] Isosorbide Mononitrate ER [Imdur] 30 mg PO DAILY tab 10/21/22 [Rx] Metoprolol Tartrate [Lopressor] 25 mg PO BID tab 10/21/22 [Rx] Nitroglycerin Sl Tabs [Nitrostat] 0.4 mg SUBLINGUAL Q5M PRN tab 10/21/22 [Rx] traMADol HCl [Ultram] 50 mg PO Q12H PRN #6 tab 10/21/22 [Rx] Follow up Appointment(s)/Referral(s): Judson Styles DO [Primary Care Provider] - 1-2 days
--- NOTE | 2022-10-21 15:44 | P.PN ---
Subjective Progress Note Date: 10/21/22 86-year-old female patient, group home resident with at transferred to us because of altered mentation and hypoxemia. The patient denies having any chest pain. . She denies having any palpitations. No syncope. No orthopnea. No edema. On her blood work, her troponin was elevated at 3.0. Noted the rest of the left showed edematous count of 8.6 with a hemoglobin of 8.9 and a platelet count of 366. Normal coagulation profile. BUN was 21 with a creatinine of 1.3 and a sodium level was at 135 with a bicarb level of 18. Troponin peaked at 3.9 and a proBNP level was 5490. UA was negative. LFTs were essentially within normal limits. The EKG showed Q waves over the anterior septal leads consistent with a previous myocardial infarction. Cardiac rhythm was sinus. Chest x-ray also showed an increased opacity throughout the right lung with a mass in the right upper lobe area. Noted the patient has had a outpatient CAT scan of the chest through her primary care physician and the CAT scan showed atelectasis with opacification of the right upper lobe an abrupt cutoff of the upper lobe b ronchus and addition to have suspicious mass in the right hilar area. Findings are highly suspicious for underlying primary lung malignancy. Note that this CAT scan was done without contrast at this point, the patient is being hospitalized and the pulmonary consultation was requested. Patient is currently on 3 L of O2 nasal cannula with a pulse ox of 94%. Patient is quite debilitated. She does limited amount of walking. She has poor insight on her condition. Denies having any hemoptysis On today's evaluation of 10/20/2022, the patient is essentially the same compared to yesterday. She is having episodes of confusion, noted that she has underlying dementia. The white cell cause of 9.2 with hemoglobin of 8.1 and a platelet count of 344. BUN is at 30 with a creatinine of 1.4. Troponin peaked at 3.9 and the patient remains on IV heparin with a therapeutic PTT. The enzymes at 30 with a creatinine 1.4 and sodium levels of 136.. Note that his been no improvement in the patient's renal function since yesterday and based on that I ordered a noncontrast CAT scan of the brain and a chest. Echocardiogram was done and the patient has normal LV function, moderate degree of mitral regurgitation, ejection fraction was estimated to be around 55-60%. The patient is resting comfortably in bed. She is on 4 L of oxygen by nasal cannula with a pulse ox of 95%. The patient was seen by cardiology. On 10/22/2019, the patient's condition is essentially unchanged. She is resting comfortably in bed. Breathing does not seem to be labored at this point in time. She does have mental status changes. CAT scan of the brain was done and it showed no evidence of any metastases. The computed tomography scan of the chest was also done and there was evidence of interval progression of her lung mass compared to the earlier CAT scan from 07/29/2022. There was a sign of the right upper lobe bronchus and there is complete collapse of the right upper lobe and there is a hilar mass which is estimated to be about 8 cm in size and this has increased in size. There is additional masses in the right lung including nodularity and anterior right lung base measuring up to 3.1 cm in size and there was also development of a new moderate-sized right-sided pleural effusion and presence of subcarinal lymphadenopathy measuring up to 1.9 cm in size. There is also metastatic disease involving the liver and possibly to adrenal glands. There was also marked generalized anasarca and trace left-sided pleural effusion and groundglass changes throughout the lung. Based on those findings, further discussion was made with the family and the patient will be transferred to hospice care. I think is extremely reasonable. Objective - Vital Signs Vital signs: Vital Signs Temp 97.7 F 10/21/22 07:12 Pulse 89 10/21/22 08:25 Resp 18 10/21/22 08:25 BP 134/73 10/21/22 07:12 Pulse Ox 97 10/21/22 08:45 FiO2 Intake & Output 10/20/22 10/21/22 10/21/22 18:59 06:59 18:59 Weight 61.235 kg Other: Voiding Method Incontinent Incontinent External Catheter External Catheter # Voids 1 2 1 - Exam calm and comfortable Head: Normocephalic. Eyes: Sclerae nonicteric. Neck: Good carotid upstroke, no bruit, no jugular venous distention. Lungs: Clear to auscultation. Heart: Regular rate and rhythm, S1-S2, no S3, no rub. Systolic ejection murmur. Abdomen: Soft nontender, positive bowel sounds no organomegaly. Extremities: No edema, intact distal pulses. Examination of the skin revealed no evidence of significant rashes, suspicious appearing nevi or other concerning lesions. - Labs CBC & Chem 7: 10/20/22 08:06 10/20/22 08:06 Assessment and Plan Plan: Right upper lobe opacification in addition to atelectasis of the right upper lobe. The patient has a hilar mass with atelectasis of the right upper lobe and cut off sign of the right upper lobe bronchus, highly suspicious for malignancy. Repeat CAT scan of the chest was marked interval progression in size of the right hilar mass measuring up to 8 cm size in addition to that there is evidence of subcarinal lymphadenopathy, additional mass in the right anterior lower lobe, liver and possibly adrenal metastases. There is development also of a moderate- sized right-sided pleural effusion and presentation is highly suggestive of an underlying lung cancer. COPD with moderate emphysematous changes and lower lobe honeycombing Acute kidney injury Acute non-ST segment elevation myocardial infarction, Non-gap metabolic acidosis Chronic anemia Hypertension Suspect dementia, with episodes of confusion senior care resident Chronic debility and the patient is a group home resident Dementia Anemia of chronic disease Sciatica and chronic difficulties with mobility Retinal bleed involving the right eye\ Plan No need for any further workup. The patient is a candidate for hospice care. I do agree with a medical team and with the family members admitted decision. The patient is to return to [facility] with hospice. She is a DNR/DNI CODE STATUS. IV heparin will be discontinued and the patient will be discharged accordingly.
== END 2022-10-21 16:50 | disposition hospice, home (50) | DRG 280 ==
LOC: EC 09:57 → 3SCARD 14:54 → 5NMEDONC 10-20 21:40
PROVIDERS: ADMIT Hospitalist; ATTEND Hospitalist
DX: I21.4 Non-ST elevation (NSTEMI) myocardial infarction (principal); J96.01 Acute respiratory failure with hypoxia; C34.01 Malignant neoplasm of right main bronchus; C78.7 Secondary malignant neoplasm of liver and intrahepatic bile duct; C79.70 Secondary malignant neoplasm of unspecified adrenal gland; N17.9 Acute kidney failure, unspecified; E87.20 Acidosis, unspecified; J98.11 Atelectasis; D63.1 Anemia in chronic kidney disease; F02.80 Dementia in other diseases classified elsewhere, unspecified severity, without behavioral disturbance, psychotic disturbance, mood disturbance, and anxiety; G30.9 Alzheimer's disease, unspecified; I12.9 Hypertensive chronic kidney disease with stage 1 through stage 4 chronic kidney disease, or unspecified chronic kidney disease; Z87.891 Personal history of nicotine dependence; I25.2 Old myocardial infarction; I34.0 Nonrheumatic mitral (valve) insufficiency; M19.91 Primary osteoarthritis, unspecified site; M54.30 Sciatica, unspecified side; N18.9 Chronic kidney disease, unspecified; R59.0 Localized enlarged lymph nodes; J44.9 Chronic obstructive pulmonary disease, unspecified; Z66 Do not resuscitate; Z51.5 Encounter for palliative care; R53.81 Other malaise; H35.61 Retinal hemorrhage, right eye; Z88.5 Allergy status to narcotic agent; Z88.0 Allergy status to penicillin; L98.9 Disorder of the skin and subcutaneous tissue, unspecified; Z79.82 Long term (current) use of aspirin; Z79.899 Other long term (current) drug therapy
CPT/HCPCS: 36415; 51701; 70450; 71046; 71250; 80048; 80053; 80061; 80306; 81001; 83880; 84484; 85025; 85027; 85610; 85730; 93005; 93306; 94760; 96365; 96366; 99291